=== PATIENT | male | born 1960 | race Caucasian/White ===

== ENCOUNTER 2024-11-09 10:48 | Outpatient (AMB) | payer MEDICARE, MEDICAID, SELFPAY ==
[2024-11-09 11:02] VITALS: BMI 33.5
--- NOTE | 2024-11-09 11:02 | A.SPINEOV_ITS ---
Vital Signs 11/09/24 11:02 Height 6 ft 4 in Weight 275 lb BMI 33.5 Intake Visit Reasons: LBP Intake Note: Mr. Nelson is here today c/o Low back pain that radiates to the knees. Manager Provider Relations Required: No Allergies No Known Allergies Allergy (Verified 11/09/24 11:03) Physical Exam Vital Signs: BMI result Body Mass Index 33.5 Assessment & Plan Assessment & Plan (1) Back pain: Code(s): M54.9 - Dorsalgia, unspecified Category: Medical Plan Dear Patricia, Thank you for referring Mr Nelson to our office today. He is a 64-year-old gentleman with a history of Marfan's disease, who presents for evaluation of chronic low back pain that has been going on for 20 years. 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 He has centralized lower lumbar pain which radiates upwards toward his upper lumbar spine. It is present all the time, even with sleeping, but particularly aggravated with standing and walking. Now he is unable to do even a short distance walk for maybe 20 30 ft before he feels like he has to sit down. There is a component of what he describes as aching in his legs but it is really not the symptom that brings him here today. The centralized back pain is the primary symptom. He has been through a host of conservative treatments through the years including physical therapy, lumbar facet blocks including recent radiofrequency ablations, epidural injections as well as a spinal cord stimulator. He had been on anti- inflammatories for years but apparently it was affecting his kidney so I had to stop. He is currently now taking Lyrica and Tylenol in addition to diclofenac cream. He comes in today with MRI showing multilevel degenerative disc disease and stenosis. PMH: History of Marfan's disorder, although he and his were able to give me some detail about his medical conditions related to that, it sounds like he has some kind of aortic root dilation and possibly a valve issue related to that. He is followed by a greens keeper in the [place] is where he lives, and apparently has another 1 in [place]. He has a history of coronary disease in his stent and that was many years ago and has been stable since that time in terms of his coronary disease. He had a pacemaker placed for sick sinus syndrome when he was living in [place]. History of hypertension. He had a diagnosis of valley fever a number of years ago. Although I am not completely familiar with this disorder, the describes something like a pulmonary fibrosis where the organism as walled off in his lungs and he can not have a recurrence of the disorder but it does affect his overall pulmonary function. He does not require inhalers or specific treatments for his lungs at this time but does get short of breath from time to time. He has had hip replacements, knee surgery. He has had cataract surgery done. Never had any major abdominal surgeries. Social hx: Quit smoking many years ago, does not drink use any recreational drugs Medications: Losartan, Tylenol, diclofenac cream, atenolol, baby aspirin, Crestor, vitamin D3, wegovy, allopurinol, amitriptyline Allergies: None Physical exam: Awake alert oriented no acute distress, he is 6 ft 4 in tall, has typical Marfan's features. Strength in the lower extremities is full, absent reflexes bilaterally at the patella and the Achilles. He has a wound from his spinal cord stimulator on his left lower lumbar area. Imaging review: Lumbar MRI done in the [place] is a demonstrates multilevel degenerative disc disease from L2-S1. I think it is the worse from L3-S1. He does have moderate to severe stenosis at L2-3, worsened according to the radiology report from previous imaging. Impression: 64-year-old gentleman with a history of Marfan's disease, presents with chronic low back pain for 20 years and multilevel degenerative disc disease that has failed to respond to multiple long-term interventions including physical therapy, medications, injections, radiofrequency ablations and a spinal cord stimulator. I am going to review his imaging with Dr. Hooper and see if he thinks he would be a good candidate for lumbar fusion surgery. He has multiple levels of disc degeneration that I think could be explaining his pain so I think he would ultimately end meeting 2 or 3 level fusion. We also have to consider that he has the stenosis at L2-3, but does not have significant lower extremity symptoms at this time, it is primarily centralized lower lumbar back pain. I explained all this to the patient and his and we reviewed the more typical procedures Dr. Hooper would do to fix this including the minimally invasive oblique lumbar interbody fusion. I will get a set of standing x-rays to better understand the bony anatomy. I will call the patient and his once I have a chance to review everything with Dr. Hooper. Thank you for allowing us to care for your patient. The total time spent with this visit with this patient was 45 minutes reviewing history, physical exam, lumbar imaging review, and implementation of treatment plan or further diagnostic testing Tommy Hooper MD,PhD [facility] Orders: Orders XR lumbar spine 4V min Today M54.9 - Dorsalgia, unspecified Coding Level of Care Code New Pt Level 4 (51115) Diagnoses Back pain M54.9
--- OUTSIDE RECORDS SUMMARY | 2024-11-09 12:01 | XMS_ITS | Clinical Summary ---
Author Organization [facility] Address [address] [place] [address] Care Team Providers Care Repeater Operator Name Role Phone Unavailable Primary Care Provider Unavailabl e Source Comments PLEASE NOTE, if this patient is a minor, it may be UNLAWFUL to discuss sensitive information that is contained in these records (such as FAMILY PLANNING, MENTAL HEALTH or SUBSTANCE ABUSE) with the minor patient's parent or other person without the patient's specific authorization.[facility] Medications No known medications Active Problems No known active problems Social History Tobacco Use Types Packs/Day Years Used Date Smoking Tobacco: Never Smokeless Tobacco: Never Tobacco Cessation:Counseling Given: Not Answered Social Connections Answer Date Recorded Connectedness 0 01/16/2024 Financial Resource Strain Answer Date R ecorded Financial Resource Strain 0 2023 Stress Answer Date Recorded Stress 0 01/16/2024 Physical Activity Answer Date Recorded Physical Activity 0 01/16/2024 Food Insecurity Answer Date Recorded Food 0 01/16/2024 Transportation Needs Answer Date Record ed Transportation 0 01/16/2024 Housing Stability Answer Date Recorded Housing 0 01/16/2024 Safety and Environment Answer Date Sawyer rded Safety 0 01/16/2024 Utilities Answer Date Recorded Utilities 0 01/16/2024 Employment Answer Date Recorded Stress 0 01/16/2024 Sex and Gender Information Value Date Recorded Sex Assigned at Not on file Legal Sex Male 11:18 AM PDT Gender Identity Not on file Sexual Orientation Not on file Last Filed Vital Signs Vital Sign Reading Time Taken Comments Blood Pressure 126/79 03/10/2024 1:36 PM EST Pulse 79 03/10/2024 1:36 PM EST Temperature - - Respiratory Rate - - Oxygen Saturation - - Inhaled Oxygen Concentration - - Weight - - Height - - Body Mass Index - - Plan of Treatment Health Maintenance Due Date Last Done Comments Anxiety Screening 1960 Diabetes Screening 1960 Hepatitis C Screening 1960 Lipid Screening 1960 HIV Screening 09/10/1974 Imm-DTaP/Tdap/Td (1 - Tdap) 09/10/1978 CT Colonography 09/10/2004 Colonoscopy 09/10/2004 Colorectal Cancer Screening 09/10/2004 FIT/gFOBT 09/10/2004 Fecal DNA 09/10/2004 Flexible Sigmoidoscopy 09/10/2004 Imm-Pneumococcal 50+ (1 of 1 - PCV) 09/10/2009 Imm-Zoster, Recombinant (1 of 2) 09/10/2009 Zez-[id number]-15 (1 - season) 2023 Alcohol and Drug Screen 03/18/2024 Depression Annual Screen 03/18/2024 Falls Prevention 09/10/2024 Imm-Influenza (#1) 2024 Hypertension Screening (#1) 03/10/2025 Tobacco Screening 03/10/2025 03/10/2024 [place] D[place]AF[place] NET DENTAL SAFETY [facility]
--- OUTSIDE RECORDS SUMMARY | 2024-11-09 12:01 | XMS_ITS | Clinical Summary ---
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 [employer] Name Role Phone Unavailable Primary Care Provider Unavailabl e Medications aspirin (ST MAY) 81 MG EC tablet Take 81 mg by mouth 1 (one) time Active atenolol (TENORMIN) 50 MG tablet Take 50 mg by mouth 1 (one) time each day 3 Active rosuvastatin (CRESTOR) 40 MG tablet Take 40 mg by mouth 1 (one) time each day 0 Active losartan (COZAAR) 100 MG tablet Take 100 mg by mouth 1 (one) time each day 3 Active sildenafil (VIAGRA) 50 MG tablet Take 50 mg by mouth if needed 4 Active pregabalin (LYRICA) 150 MG capsule Take 150 mg by mouth in the morning and 150 mg in the evening and 150 mg before bedtime. 2 Active amLODIPine (NORVASC) 10 MG tablet Take 10 mg by mouth 1 (one) time each day Active atorvastatin (LIPITOR) 40 MG tablet Take 40 mg by mouth 1 (one) time each day Active fluocinonide (LIDEX) 0.05 % ointment Apply topically 2 Active amitriptyline (ELAVIL) 25 MG tablet Take 75 mg by mouth 4 Active fexofenadine (JULIUS) 180 MG tablet Take 180 mg by mouth 1 (one) time each day 4 Active Active Problems Problem Noted Date Diagnosed Date Disorder of kidney 08/13/2023 Overview (2023): Last Assessment & Plan: Significant decline in kidney function from May 2023 to June 2023, confirmed on July 2023 labs as well. Reason for declining kidney function unknown. Patient has appointment long term care social worker September 10 Petechiae of skin 07/09/2023 Overview (2023): Last Assessment & Plan: Resolved with Julius, most likely due to seasonal allergies, use Julius as needed Pacemaker battery depletion 05/21/2023 Overview (2023): Last Assessment & Plan: Referral to local cardiology for pacemaker follow-up Chronic back pain 12/05/2022 Overview (2023): Last Assessment & Plan: On long-term Lyrica therapy, recent spinal cord stimulator-successful Referral to pain management for further follow-up Drug-induced erectile dysfunction 12/05/2022 Overview (2023): Last Assessment & Plan: Erectile dysfunction did not improve with correction of low blood pressure. Erectile dysfunction- Common issue with men, associated with aging Options for oral medications-Viagra, Levitra, Cialis All 3 have similar effectiveness, and similar side effects Most common side effects-vision changes, flushing. If you take nitroglycerin within 24 hours of Viagra, 48 hours of Levitra, or 3 days of Cialis, the combination of nitroglycerin and these medications can be fatal. If you develop an erection that lasts more than 3 hours, recommend ER evaluation immediately for rare condition called priapism Option-low cost sildenafil through [facility], adjust dose from 20 mg at a time to 60 mg at a time. Patient understands risk versus benefits, begin trial of prescription Viagra Encounter for immunization 12/05/2022 Overview (2023): Last Assessment & Plan: Highly recommend-get the updated COVID vaccine, (either Pfizer - Comrinaty or Moderna - SpikeVax) recommended for everyone over six-months old, it's more effective against the variants that are increasingly causing disease and [place]. People recently infected with COVID can receive the updated vaccine as soon as they have recovered, to reduce the risk of reinfection. [id number] available your doctors office Recently, patients have had greater success obtaining the updated November 2022 COVID vaccine through larger chain pharmacies, rather than smaller local pharmacies Alternative-for patients who are uninsured, or whose insurance does not cover the cost of vaccinations [address], [address], [place] [address] We are currently offering COVID-19 vaccinations to eligible persons 6 months and older. We offer Pfizer and Moderna at every COVID-19 vaccination clinic. Vaccine Clinics are held as follows: 6 months - 5 years of age: Mondays BY APPOINTMENT ONLY from 9am - 2:30pm 5+ years: Wednesdays BY APPOINTMENT ONLY from 1:30pm - 3:30pm To schedule an appointment for a vaccine call [phone]. Recommend seasonal influenza vaccine every fall, as soon as possible. Available at your doctor's office, in pharmacies, and at the [facility] Recommend - shingles vaccine, Shingrix - extremely effective at preventing the painful rash called shingles. Series of 2 shots given 2-6 months apart, available in many pharmacies. Available in our office for patients with private insurance (not Medicare or Medicaid - better option = pharmacy) Our records indicate you previously received Zostavax in 2015, it is recommended for patients who have received Zostavax, get the 2 dose series of Shingrix. Shingrix = very effective at preventing shingles, Zostavax was not. RSV vaccine- is approved by the FDA as safe and effective for adults over age 60, and is available in pharmacies, however Not yet recommended by the CDC, I will recommend the RSV vaccine for you if and when the CDC recommends you receive it. Hyperuricemia 12/05/2022 Overview (2023): Last Assessment & Plan: Await lab test results Aortic root dilatation 07/30/2022 Drug coated stent in anterio r descending branch of left coronary artery 07/30/2022 Hyperlipidemia 01/07/2020 Overview (2023): Last Assessment & Plan: Treated with Crestor, await follow-up labs. Marfan syndrome 01/07/2020 Overview (2023): Last Assessment & Plan: History of Marfan's, at increased risk for rupture of aortic aneurysms Get old records,-previous imaging of aorta, previous echocardiogram Patient quit smoking 1985 Blood pressure currently low Recommend-stop alcohol due to adverse effects on blood vessels Sick sinus syndrome 06/19/2019 Coronary arteriosclerosis 06/18/2019 Dehydration 06/18/2019 Dyspnea 06/18/2019 Essential hypertension 06/18/2019 Overview (2023): Last Assessment & Plan: Blood pressure benign, good control, continue treatment same Second degree atrioventricular block 06/18/2019 Immunizations Immunization Administration Dates Next Due DTaP 12/09/2008 Influenza (IM) Preservative Free 01/10/2022 Influenza, Injectable, Quadrivalent, Preservativ e Free 05/21/2023,03/09/2019 Moderna Sars-cov-2 Vaccination 01/10/2022 Zoster 09/23/2014 Family History Medical History Relation Comments FH: Blood disorder Father Marfan syndrome Mother Relation Status Comments Father Mother Social History Tobacco Use Types Packs/Day Years Used Date Smoking Tobacco: Former Cigarettes Smokeless Tobacco: Never Alcohol Use Standard Drinks/Week Comments Yes 0 (1 standard drink = 0.6 oz pur e alcohol) Sex and Gender Information Value Date Recorded Sex Assigned at Not on file Legal Sex Male 9:06 AM MDT Gender Identity Not on file Sexual Orientation Not on file Last Filed Vital Signs Vital Sign Reading Time Taken Comments Blood Pressure 124/65 2023 4:22 PM EDT Pulse 65 2023 4:22 PM EDT Temperature - - Respiratory Rate - - Oxygen Saturation - - Inhaled Oxygen Concentration - - Weight 132 kg (291 lb) 2023 4:22 PM EDT Height 193 cm (6' 4 ) 2023 4:22 PM EDT Body Mass Index 35.42 2023 4:22 PM EDT Plan of Treatment Health Maintenance Due Date Last Done Comments Pneumococcal PPSV23/PCV13 65 + Years / High and Highest Risk (1 of 5 - PCV) 09/10/1978 COVID-19 Vaccine (2 - season) 2023 Influenza Vaccine (#1) 2024 , 01/10/2022, 03/09/2019
--- OUTSIDE RECORDS SUMMARY | 2024-11-09 12:01 | XMS_ITS | Clinical Summary ---
Author Organization [facility] Address [address] [place] [address] Phone Care Team Providers Care Custom Harvester Name Role Phone Zehra Onofre MD Primary Care Provider [phone] Allergies No known active allergies Medications atenolol (TENORMIN) 50 mg tablet daily. Active diclofenac sodium (VOLTAREN) 1 % Gel 4 (four) times a day. PRN 2 Active fluocinonide 0.05 % ointment Apply topically 2 (two) times a day. PRN 2 Active losartan (COZAAR) 100 MG tablet Take 100 mg by mouth daily. Active pregabalin (LYRICA) 150 MG capsule Take 150 mg by mouth every 3 (three) days. 2 Active rosuvastatin (CRESTOR) 40 MG tablet Take by mouth daily. Active aspirin 81 MG EC tablet daily. Active CHOLECALCIFEROL , VITAMIN D3, ORAL Take 1,000 Units by mouth daily. Active amitriptyline (ELAVIL) 25 MG tablet Take 25 mg by mouth nightly at bedtime. Active Active Problems Problem Noted Date Diagnosed Date Nonrheumatic aortic valve insufficiency 02/28/20 24 Coronary artery disease invo lving [place] coronary artery of [place] heart without angina pectoris 02/28/2024 Hyperlipidemia 02/28/2024 Second degree AV block 02/28/2024 Pacemaker 02/28/2024 Venous insufficiency 02/28/2024 Aortic root dilatation 07/30/2022 Marfan syndrome 07/30/2022 Presence of drug coated stent in LAD coronary ar mathew 07/30/2022 Primary hypertension 07/30/2022 Social History Tobacco Use Types Packs/Day Years Used Date Smoking Tobacco: Former Cigarettes 1 5 0 03/18/1981 - 03/18/1986 Smokeless Tobacco: Never Tobacco Cessation:Counseling Given: Not Answered Alcohol Use Standard Drinks/Week Comments Yes 1 (1 standard drink = 0.6 oz pur e alcohol) Education Answer Date Recorded Are you interested in more education? Not on jessica e 07/14/2022 Are you concerned about learning? Not on file 07/14/2022 No 07/14/2022 No 07/14/2022 Digital Access Answer Date Recorded No 08/11/2022 No 08/11/2022 Reliable internet access at home? Not on file 08/11/2022 Device with a working camera? Not on file Sex and Gender Information Value Date Recorded Sex Assigned at Male 03/28/2023 8:12 AM EST Legal Sex Male 5:46 PM EST Gender Identity Male 03/28/2023 8:12 AM EST Sexual Orientation Straight 03/28/2023 8: 12 AM EST Last Filed Vital Signs Vital Sign Reading Time Taken Comments Blood Pressure 127/75 03/02/2024 4:31 PM EST Pulse 58 03/02/2024 4:31 PM EST Temperature 36.7 C (98 F) 03/27/2022 12:57 PM EST Respiratory Rate 16 07/30/2022 12:36 PM EDT Oxygen Saturation 95% 03/27/2022 1:09 PM EST Inhaled Oxygen Concentration 4% 03/27/2022 1 0:45 AM EST Weight 127.9 kg (282 lb) 03/02/2024 4:31 PM EST Height 193 cm (6' 4 ) 03/02/2024 2:59 PM EST Body Mass Index 34.33 03/02/2024 2:59 PM EST Plan of Treatment Upcoming Encounters Date Type Department Care Team (Late st Contact Info) Description 03/02/2024 Procedure Pass [facility] [address] [place] [address] 08/23/2025 2:30 PM EDT Appointment [facility] [address] [place] [address] Noé Armas MD, MSc [address] [facility] [place] [address] [email or web address] 08/23/2025 3:30 PM EDT Office Visit [facility] Cardiovascular Medicine [address], [address] [place] [address] Kelly Mack, CHIEF I DISPATCHER [address] [place] [address] [email or web address] Health Maintenance Due Date Last Done Comments Adult Td,Tdap Booster 1959 DEPRESSION SCREENING 1971 HEPATITIS C SCREENING 09/10/1977 HIV ONE-TIME SCREENING (18-6 5 YEARS) 09/10/1977 COLOGUARD 09/10/2004 COLONOSCOPY 09/10/2004 COLORECTAL CANCER SCREENING 09/10/2004 FIT TEST 09/10/2004 FOBT 09/10/2004 SIGMOIDOSCOPY 09/10/2004 VIRTUAL COLONOSCOPY 09/10/2004 PNEUMOCOCCAL VACCINES (50+ y ears) (1 of 1 - PCV) 09/10/2009 ZOSTER VACCINES (1 of 2) 09/10/2009 CREATININE LEVEL 09/07/2021 09/07/2020 POTASSIUM LEVEL 09/07/2021 09/07/2020 SCREENING FOR DIABETES 09/08/2023 09/07/2020 COVID-19 VACCINE ( - 2023-2 5 season) 2023 BLOOD PRESSURE 08/31/2024 03/02/2024 ABDOMINAL AORTIC ANEURYSM (A AA) SCREENING 09/10/2024 09/07/2020 RSV VACCINE (1 - 1-dose 75+ series) 09/10/2034 SMOKING STATUS SCREENING (On ce After 26 Yrs) Completed 03/02/2024 HEPATITIS A VACCINES Aged Out No long er eligible based on patient's age to complete this topic HIB VACCINES Aged Out No longer eligi ble based on patient's age to complete this topic MENINGOCOCCAL VACCINES (ACWY) Aged Out No longer eligible based on patient's age to complete this topic MENINGOCOCCAL VACCINES (B) Aged Out N o longer eligible based on patient's age to complete this topic Medical Devices Implanted Type Area Behavioral Health Assistant Device Identifier Shelf Expiration Date Model / Serial / Lot Right Thr Iol Lens Intraocular Ct Rafaela 602 21.0d - [id number] Implanted:Qty: 1 on 03/27/2022 by Corky Jim MD at [facility] [place] Right: Eye [employer] 12/15/2024 CT RAFAELA 602 21.0D / [id number] / Insurance MEDICARE PART A & B [facility]IC[facility] PART [facility] & [facility] B [facility] MEDIC[facility] A & [facility] B [facility] MEDICARE PART A & B [facility] Care Teams Custom Harvester Relationship Specialty Start Date End Date Zehra Onofre MD [address] [place] [id number] PCP - General 03/05/24 Additional Source Comments The information contained in this document represents components of the legal health record. It is not the complete legal health record.[facility]
--- OUTSIDE RECORDS SUMMARY | 2024-11-09 12:02 | XMS_ITS ---
Author Name [facility] Organization Unknown Results Test Name/Text Value Interpretation Date Range Source Flag M-protein Isotype MS, Random, U Negative Normal 4 - [facility] Creat Ur-mCnc 51.0 mg/dL Normal 4 16 - 326 [facility] Albumin Ur Elph-mCnc 4.0 mg/dL Normal 02 4 [facility] Prot Pattern Ur Elph-Imp SEE COMMENTS Normal 4 [facility] M-protein Isotype, MS, Random,U SEE COMMENTS Normal 4 [facility] Prot Ur-mCnc 4.0 mg/dL Normal 4 [facility] Prot/Creat Ur 0.08 mg/mg Normal 4 - 0.18 [facility] Creat Ur-mCnc 48.35 mg/dL Normal 4 - [facility] Prot Ur-mCnc < 6 Normal 4 0 - 10 [facility] Prot/Creat Ur-Rto Normal 4 [facility] Creat Ur-mCnc 48.35 mg/dL Normal 4 - [facility] Microalbumin/Creat Ur 8.9 ug/mg CREAT Normal 4 - 30 [facility] Microalbumin Ur-mCnc 4.3 mg/L Normal 02 4 - 20 [facility] B burgdor C6 Ab Ser Ql Negative Normal 4 - [facility] Proteinase3 IgG Ser Ql IA Negative Normal 4 - [facility] Myeloperoxidase Ab Ser Ql IA Negative Normal 4 - [facility] dsDNA Ab Ser Ql Negative Normal 4 - [facility] dsDNA Ab Ser-aCnc 18.0 IU/mL Normal 4 [facility] Hu Ab Ser Ql Negative Normal 4 - [facility] YEISON Ser-aCnc 20.0 AU/mL Normal 4 [facility] BM IgG Ser-aCnc <0.2 Normal 4 - [facility] C3 SerPl-mCnc 172.0 mg/dL Above high normal 4 79 - 152 [facility] C4 SerPl-mCnc 43.0 mg/dL Normal 4 21 - 50 [facility] CO2 SerPl-sCnc 27.8 mmol/L Normal 4 23 - 34 [facility] Phosphate SerPl-mCnc 3.4 mg/dL Normal 02 4 2.6 - 4.7 [facility] Calcium SerPl-mCnc 9.3 mg/dL Normal 4 8.6 - 10.5 [facility] eGFRcr SerPlBld CKD-EPI 2020 56.0 mL/min/1.73 m2 Below low normal 4 - [facility] Calcium Album cor SerPl-mCnc 9.8 mg/dL Normal 4 8.6 - 10.5 [facility] BUN SerPl-mCnc 19.0 mg/dl Normal 4 7 - 22 [facility] Albumin SerPl BCP-mCnc 3.4 g/dL Normal 4 3.4 - 5 [facility] Potassium SerPl-sCnc 4.9 mmol/L Normal 02 4 3.5 - 5.3 [facility] Anion Gap SerPl-sCnc 7.0 mmol/L Normal 02 4 3 - 13 [facility] Chloride SerPl-sCnc 103.0 mmol/L Normal 09/12/19 2 4 98 - 107 [facility] Creat SerPl-mCnc 1.41 mg/dL Above high normal 4 0.8 - 1.3 [facility] Glucose SerPl-mCnc 102.0 mg/dL Normal 4 70 - 140 [facility] Sodium SerPl-sCnc 138.0 mmol/L Normal 4 134 - 148 [facility] Neutrophils/leuk NFr Bld Auto 58.9 % Normal 4 41 - 75 [facility] Neutrophils # Bld Auto 4.26 x10E3/uL Normal 4 1.4 - 6.5 [facility] Lymphocytes/leuk NFr Bld Auto 25.6 % Normal 4 15 - 43 [facility] Monocytes # Bld Auto 0.68 x10E3/uL Normal 4 - [facility] Hct VFr Bld Auto 42.8 % Normal 4 39 - 49.2 [facility] PMV Bld Auto 8.7 fL Normal 4 5 - 15 [facility] Basophils # Bld Auto 0.01 x10E3/uL Normal 4 - [facility] Monocytes/leuk NFr Bld Auto 9.4 % Normal 4 4.5 - 12 [facility] MCHC RBC Auto-mCnc 33.6 g/dL Normal 4 32 - 39.2 [facility] MCV RBC Auto 84.1 fL Normal 4 82 - 101 [facility] Platelet # Bld Auto 225.0 x10E3/uL Normal 4 135 - 349 [facility] RBC # Bld Auto 5.09 x10E6/uL Normal 4 4.01 - 5.63 [facility] Eosinophil/leuk NFr Bld Auto 5.4 % Normal 4 0 - 6.5 [facility] WBC # Bld Auto 7.23 x10E3/uL Normal 4 3.7 - 10 [facility] Basophils/leuk NFr Bld Auto 0.1 % Normal 4 0 - 2.2 [facility] RDW RBC Auto-Rto 13.4 % Normal 4 10.9 - 14.9 [facility] Lymphocytes # Bld Auto 1.85 x10E3/uL Normal 4 0.6 - 3.4 [facility] MCH RBC Qn Auto 28.3 pg Below low normal 09/12/19 2 4 28.5 - 36.9 [facility] Eosinophil # Bld Auto 0.39 x10E3/uL Normal 09/11 4 - [facility] Hgb Bld-mCnc 14.4 g/dL Normal 4 13.4 - 18 [facility] Urate SerPl-mCnc 8.6 mg/dL Normal 4 4.8 - 8.7 [facility] Calcium SerPl-mCnc 8.7 mg/dL Normal 4 8.6 - 10.5 [facility] BUN SerPl-mCnc 27.0 mg/dl Above high normal 08/07/19 2 4 7 - 22 [facility] ALP SerPl-cCnc 97.0 U/L Normal 4 46 - 116 [facility] eGFRcr SerPlBld CKD-EPI 2020 54.0 mL/min/1.73 m2 Below low normal 4 - [facility] AST SerPl w P-5'-P-cCnc 20.0 U/L Normal 4 15 - 37 [facility] Bilirub SerPl-mCnc 0.51 mg/dL Normal 4 0.2 - 1 [facility] ALT SerPl w P-5'-P-cCnc 34.0 U/L Normal 4 12 - 78 [facility] Prot SerPl-mCnc 7.6 g/dL Normal 4 6.4 - 8.2 [facility] Potassium SerPl-sCnc 4.9 mmol/L Normal 02 4 3.5 - 5.3 [facility] Chloride SerPl-sCnc 104.0 mmol/L Normal 08/07/19 2 4 98 - 107 [facility] CO2 SerPl-sCnc 29.6 mmol/L Normal 4 23 - 34 [facility] Glucose SerPl-mCnc 122.0 mg/dL Normal 4 70 - 140 [facility] Sodium SerPl-sCnc 141.0 mmol/L Normal 4 134 - 148 [facility] Anion Gap SerPl-sCnc 7.0 mmol/L Normal 02 4 3 - 13 [facility] Globulin Ser Calc-mCnc 4.1 g/dL Normal 4 2.4 - 4.3 [facility] Creat SerPl-mCnc 1.46 mg/dL Above high normal 4 0.8 - 1.3 [facility] Albumin SerPl BCP-mCnc 3.5 g/dL Normal 4 3.4 - 5 [facility] Cryocrit Ser Spun Westergren 0.0 % Normal 4 [facility] Cryoglob Ser Ql 1W Cold Inc Negative Normal 4 - [facility] Proteinase3 IgG Ser Ql IA Negative Normal 4 - [facility] Myeloperoxidase Ab Ser Ql IA Negative Normal 4 - [facility] HCV RNA SerPl AMBER+probe-aCnc Undetected Normal 4 - [facility] CH50 SerPl-aCnc 57.0 U/mL Normal 4 30 - 75 [facility] HBV core Ab SerPl Ql IA Non-reactive Normal 4 - [facility] YEISON Ser-aCnc 32.0 AU/mL Normal 4 [facility] Hu Ab Ser Ql Negative Normal 4 - [facility] HBV surface Ab Ser Ql IA Non-reactive Normal 4 - [facility] HIV 1+2 Ab+HIV1 p24 Ag SerPl Ql IA Non-Reactive Normal 4 - [facility] C4 SerPl-mCnc 39.0 mg/dL Normal 4 21 - 50 [facility] C3 SerPl-mCnc 163.0 mg/dL Above high normal 4 79 - 152 [facility] Rheumatoid fact Ser Ql LA Negative Normal 4 - [facility] ESR Bld Qn Westrgrn 6.0 mm/HR Normal 07/09/19 2 4 - 20 [facility] Albumin SerPl BCP-mCnc 3.5 g/dL Normal 4 3.4 - 5 [facility] ALP SerPl-cCnc 98.0 U/L Normal 4 46 - 116 [facility] BUN SerPl-mCnc 26.0 mg/dl Above high normal 07/09/19 2 4 7 - 22 [facility] Globulin Ser Calc-mCnc 4.2 g/dL Normal 4 2.4 - 4.3 [facility] CO2 SerPl-sCnc 26.4 mmol/L Normal 4 23 - 34 [facility] Bilirub SerPl-mCnc 0.44 mg/dL Normal 4 0.2 - 1 [facility] AST SerPl w P-5'-P-cCnc 21.0 U/L Normal 4 15 - 37 [facility] Creat SerPl-mCnc 1.45 mg/dL Above high normal 4 0.8 - 1.3 [facility] Anion Gap SerPl-sCnc 9.0 mmol/L Normal 02 4 3 - 13 [facility] Glucose SerPl-mCnc 108.0 mg/dL Normal 4 70 - 140 [facility] ALT SerPl w P-5'-P-cCnc 36.0 U/L Normal 4 12 - 78 [facility] Sodium SerPl-sCnc 139.0 mmol/L Normal 4 134 - 148 [facility] eGFRcr SerPlBld CKD-EPI 2020 54.0 mL/min/1.73 m2 Below low normal 4 - [facility] Prot SerPl-mCnc 7.7 g/dL Normal 4 6.4 - 8.2 [facility] Potassium SerPl-sCnc 4.5 mmol/L Normal 02 4 3.5 - 5.3 [facility] Calcium SerPl-mCnc 9.0 mg/dL Normal 4 8.6 - 10.5 [facility] Chloride SerPl-sCnc 104.0 mmol/L Normal 07/09/19 2 4 98 - 107 [facility] Hgb Bld-mCnc 14.6 g/dL Normal 4 13.4 - 18 [facility] Platelet # Bld Auto 250.0 x10E3/uL Normal 4 135 - 349 [facility] WBC # Bld Auto 8.3 x10E3/uL Normal 4 3.7 - 10 [facility] MCHC RBC Auto-mCnc 33.4 g/dL Normal 4 32 - 39.2 [facility] RDW RBC Auto-Rto 13.8 % Normal 4 10.9 - 14.9 [facility] Lymphocytes/leuk NFr Bld Auto 30.5 % Normal 4 15 - 43 [facility] Hct VFr Bld Auto 43.7 % Normal 4 39 - 49.2 [facility] Basophils/leuk NFr Bld Auto 0.1 % Normal 4 0 - 2.2 [facility] Eosinophil/leuk NFr Bld Auto 4.6 % Normal 4 0 - 6.5 [facility] MCH RBC Qn Auto 28.5 pg Normal 4 28.5 - 36.9 [facility] Basophils # Bld Auto 0.01 x10E3/uL Normal 4 - [facility] Eosinophil # Bld Auto 0.38 x10E3/uL Normal 07/08 4 - [facility] RBC # Bld Auto 5.12 x10E6/uL Normal 4 4.01 - 5.63 [facility] Monocytes # Bld Auto 0.92 x10E3/uL Above high normal 0 4 - [facility] Neutrophils/leuk NFr Bld Auto 53.1 % Normal 4 41 - 75 [facility] MCV RBC Auto 85.4 fL Normal 4 82 - 101 [facility] Monocytes/leuk NFr Bld Auto 11.1 % Normal 4 4.5 - 12 [facility] PMV Bld Auto 8.9 fL Normal 4 5 - 15 [facility] Neutrophils # Bld Auto 4.41 x10E3/uL Normal 4 1.4 - 6.5 [facility] Lymphocytes # Bld Auto 2.53 x10E3/uL Normal 4 0.6 - 3.4 [facility] HCV Ab s/co SerPl IA Non-reactive Normal 02 4 - [facility] PSA SerPl-mCnc 2.29 ng/mL Normal 4 - [facility] Cholest SerPl-mCnc 144.0 mg/dL Normal 4 - 200 [facility] Fasting status Patient Ql Reported No Normal 4 [facility] NonHDLc SerPl-mCnc 109.0 mg/dL Normal 4 - 190 [facility] LDLc SerPl Direct Assay-mCnc 53.0 mg/dL Normal 4 - [facility] Trigl SerPl-mCnc 279.0 mg/dL Above high normal 4 - 150 [facility] HDLc SerPl-mCnc 35.0 mg/dL Below low normal 05/22/19 2 4 39 - [facility] Urate SerPl-mCnc 7.3 mg/dL Normal 4 4.8 - 8.7 [facility] eGFRcr SerPlBld CKD-EPI 2020 72.0 mL/min/1.73 m2 Normal 4 - [facility] Glucose SerPl-mCnc 91.0 mg/dL Normal 4 70 - 140 [facility] Chloride SerPl-sCnc 105.0 mmol/L Normal 05/21/19 2 4 98 - 107 [facility] Creat SerPl-mCnc 1.15 mg/dL Normal 4 0.8 - 1.3 [facility] Albumin SerPl BCP-mCnc 3.4 g/dL Normal 4 3.4 - 5 [facility] Prot SerPl-mCnc 7.8 g/dL Normal 4 6.4 - 8.2 [facility] Potassium SerPl-sCnc 4.5 mmol/L Normal 02 4 3.5 - 5.3 [facility] BUN SerPl-mCnc 15.0 mg/dl Normal 4 7 - 22 [facility] ALP SerPl-cCnc 92.0 U/L Normal 4 46 - 116 [facility] CO2 SerPl-sCnc 27.5 mmol/L Normal 4 23 - 34 [facility] ALT SerPl w P-5'-P-cCnc 27.0 U/L Normal 4 12 - 78 [facility] Sodium SerPl-sCnc 141.0 mmol/L Normal 4 134 - 148 [facility] Anion Gap SerPl-sCnc 9.0 mmol/L Normal 02 4 3 - 13 [facility] AST SerPl w P-5'-P-cCnc 21.0 U/L Normal 4 15 - 37 [facility] Calcium SerPl-mCnc 9.2 mg/dL Normal 4 8.6 - 10.5 [facility] Globulin Ser Calc-mCnc 4.4 g/dL Above high normal 4 2.4 - 4.3 [facility] Bilirub SerPl-mCnc 0.34 mg/dL Normal 4 0.2 - 1 [facility] Encounters Encounter Type Encounter Reason Primary Diagnosis Location Date Ambulatory Chronic kidney disea se, stage 2 (mild) Chronic kidney disease, stage 2 (mild) [facility] 09/12/2023 Ambulatory [facility] 08/28/2023 Ambulatory Essential (primary) hypertension Essential (primary) hypertension [facility] 08/21/2023 Ambulatory [facility] 08/08/2023 Ambulatory Spontaneous ecchymoses Spontaneous ecchymoses [facility] 08/07/2023 Ambulatory Spontaneous ecchymoses Spontaneous ecchymoses [facility] 08/07/2023 Ambulatory Spondylosis without myelopathy or radiculopathy, lumbosacral region Spondylosis without myelopathy or radiculopathy, lumbosacral region [facility] 08/05/2023 Ambulatory Thoracic aortic ectasia Thoracic aortic ectasia [facility] 07/29/2023 Ambulatory Marfan syndrome, unspecified Marfan syndrome, unspecified [facility] 07/22/2023 Ambulatory Spontaneous ecchymoses [facility]ontaneous ecchymoses [facility] 07[facility]09/[facility]23 Ambulatory Spontaneous ecchymoses Spontaneous ecchymoses [facility] 07/09/2023 Ambulatory Encounter for checki ng and testing of cardiac pacemaker pulse generator (battery) Encounter for checking and testing of cardiac pacemaker pulse [facility] Ambulatory Essential (primary) hypertension Essential (primary) hypertension [facility] 05/21/2023 Ambulatory Essential (primary) hypertension Essential (primary) [facility] 05[facility]21[facility]2023 Ambulatory Spondylosis without myelopathy or radiculopathy, lumbosacral region Spondylosis without myelopathy or radiculopathy, lumbosacral region [facility] 05/07/2023 Ambulatory [facility] 03/23/2023 Ambulatory Spondylosis without myelopathy or radiculopathy, thoracolumbar region Spondylosis without myelopathy or radiculopathy, thoracolumbar region [facility] 02/25/2023 Ambulatory Spondylosis without myelopathy or radiculopathy, lumbosacral region Spondylosis without myelopathy or radiculopathy, lumbosacral region [facility] 01/11/2023 Ambulatory Essential (primary) hypertension Essential (primary[facility] hypertension [facility]/2022 Care Team Organization Name Specialty Phone Email Start Date End Da te [facility] Ambulatory JOYCE GARCIA [facility] [email or web address] 04/07/2023 [facility] Ambulatory 03/23/2023 [facility] JOYCE GARCIA Primary Care [email or web address] 01/11/2023 [facility] JOYCE GARCIA Primary Care [email or web address] 12/19/2022 [facility] 12/05/2022
== END 2024-11-09 11:56 | disposition home or self-care (01) ==
LOC: HO.HNS 10:48
PROVIDERS: Visit Provider Physician Assistant
DX: M54.9 Dorsalgia, unspecified (principal)
CPT/HCPCS: 99204

== ENCOUNTER 2024-11-09 10:48 | Outpatient (REF) | payer MEDICARE, MEDICAID, SELFPAY ==
--- NOTE | ~2024-11-09 | XR_ITS ---
EXAMINATION: XR LUMBOSACRAL SPINE CLINICAL INFORMATION: M54.9 - Dorsalgia, unspecified COMPARISON: None available. TECHNIQUE: Lateral views in neutral, flexion and extension position. AP view. FINDINGS: Multilevel endplate sclerosis marginal osteophyte formation and decreased intervertebral disc height throughout the included axial skeleton. There is a grade 1 anterolisthesis at L2-3 in neutral position which persists during flexion and extension position. No acute cortical disruption. Levoconvex rotoscoliosis apex at L3. There is an intraspinal canal stimulator device with a reservoir overlapping the left iliac crest and and draining from the left posterior aspect of the lower back perhaps T11 level and T8 and T9 at the superior endplate of T9. Facet joint hypertrophy at L4-5 and L5-S1. No lytic or blastic lesions. XR/XR lumbar spine 4V min IMPRESSION: Multilevel thoracolumbar spondylosis and levoconvex rotoscoliosis apex at L3 with a grade 1 anterolisthesis L2-3 and no instability. Electronically signed by: Jorge L Lombardo MD 11/09/2024 12:05 PM EDT
== END 2024-11-09 10:49 | disposition home or self-care (01) ==
LOC: HO.HOSX 10:48
PROVIDERS: Visit Provider Physician Assistant
DX: M54.50 Low back pain, unspecified (principal)
CPT/HCPCS: 72110; 99202

== ENCOUNTER → 2024-11-09 11:49 | Outpatient (BNV) | payer MEDICARE, MEDICAID, SELFPAY | PROVIDERS: Visit Provider Radiology Diagnostic Radiology | DX: M47.815 Spondylosis without myelopathy or radiculopathy, thoracolumbar region (principal) | CPT/HCPCS: 72110 ==

== ENCOUNTER 2024-11-27 08:44 | Outpatient (AMB) | payer MEDICARE, MEDICAID, SELFPAY ==
--- NOTE | 2024-11-27 08:54 | A.SPINEOV_ITS ---
Intake Visit Reasons: surgical discussion Intake Note: Mr. Nelson is here today to discus surgery. 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 His MRI is done at the [facility] in his x- rays were done here at [place]. He came back to discuss possible surgical intervention for severe lumbar degenerative disc disease. Please refer to my last note for the specifics of his problem. Dr. Hooper and I sat down with him to discuss lumbar fusion surgery, specifically L2-S1 oblique lumbar interbody fusion (possible trans Kambin L2-3). We quoted success rate as 60- 70%. We will need assistance from Dr. Arreola on the approach so we will coordinate a preoperative visit with him. The patient will need cardiac clearance as well given his remote history of CAD and history of sick sinus syndrome with pacemaker. He also has some kind of issue with his valve but he tells me he is stable. 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 He will stop his Wegovy and his aspirin 1 week prior to surgery. The patient was given risk and benefits of lumbar fusion surgery including but not limited to infection, hematoma, nerve injury, durotomy, weakness, bowel/bladder injury, persistent pain, and pseudoarthosis or instrumentation failure. We also discussed the option to continue with conservative treatment and patient wishes to proceed with surgery. They are aware they should stop NSAIDs 7 days prior to surgery. All questions were answered to the best of our ability. If there is anything about this patients medical history that we have overlooked or concerns you have about us proceeding with surgery we would appreciate any input you can offer. Total amount of time spent in this visit was 20 minutes in discussion of symptoms, lumbar MRI imaging results and subsequent plan of care Tommy Hooper MD,PhD [facility] Coding Level of Care Code Est Pt Level 3 (25150) Diagnoses Back pain M54.9
--- OUTSIDE RECORDS SUMMARY | 2024-11-27 09:24 | XMS_ITS | Clinical Summary ---
Author Organization [facility] Address [address] [place] [address] Care Team Providers Care Lamp Decorator Name Role Phone Unavailable Primary Care Provider [...] 09/10/2009 Imm-Zoster, Recombinant (1 of 2) 09/10/2009 [id number] (1 - season) 2023 Alcohol and Drug Screen 03/18/2024 Depression Annual Screen 03/18/2024 Falls Prevention 09/10/2024 Imm-Influenza (#1) 2024 Hypertension Screening (#1) 03/10/2025 Tobacco Screening 03/10/2025 03/10/2024 Insurance [place] D[place]AF[place] NET DENTAL SAFETY FORMERLY [facility] DENTAL
--- OUTSIDE RECORDS SUMMARY | 2024-11-27 09:24 | XMS_ITS | Encounter Summary ---
Author Organization [facility] Address [address] [place] [address] Phone Care Team Providers Care Molder Foam Rubber Name Role Phone Dunia Hansen MD Primary Care Provider [phone] Zehra Onofre MD Primary Care Provider [phone] Encounter Details Date Type Department Care Team (Late st Contact Info) Description 03/27/2022 Procedure Pass [facility] DEPT [address] [place] [address] Social History Tobacco Use Types Packs/Day Years Used Date Smoking Tobacco: Former Cigarettes 1 5 0 03/18/1981 - 03/18/1986 Smokeless Tobacco: Never Alcohol Use Standard Drinks/Week Comments Yes 1 (1 standard drink = 0.6 oz pur e alcohol) Sex and Gender Information Value Date Recorded Sex Assigned at Male 03/28/2023 8:12 AM EST Legal Sex Male 5:46 PM EST Gender Identity Male 03/28/2023 8:12 AM EST Sexual Orientation Straight 03/28/2023 8: 12 AM EST documented as of this encounter Plan of Treatment Upcoming Encounters Date Type Department Care Team (Late st Contact Info) Description 03/02/[address] [facility] Cardiac [address] [place] [address] 08/23/2025 2:[address] [facility] Cardiac [address] [place] [address] Noé Armas MD, MSc [address] [place], [place] [id number] [place] [id number] [email or web address] 08/23/2025 3:30 PM EDT Office Visit [facility] Cardiovascular Medicine [address] [facility], [address] [place] [address] Kelly Mack CNP [address] [facility] [address] [place] [address] [email or web address] documented as of this encounter Visit Diagnoses Not on filedocumented in this encounter Care Teams Molder Foam Rubber Relationship Specialty Start Date End Date Dunia Hansen MD [address] [place] [address] PCP - General 02/21/22 03/04/24 Zehra Onofre MD [address] [address] PCP - General 03/05/24 Dr. Charles Ramsey [facility] [employer] 03/15/22 03/04/24 documented as of this encounter Additional Source Comments The information contained in this document represents components of the legal health record. It is not the complete legal health record.[facility]
--- OUTSIDE RECORDS SUMMARY | 2024-11-27 09:24 | XMS_ITS | Clinical Summary ---
Author Organization [facility] Address [address] [place] [address] Phone Care Team Providers Care Division Head Name Role Phone Unavailable Primary Care Provider [...] declining kidney function unknown. Patient has appointment manager brand September 10 Petechiae of skin 07/09/2023 Overview [...] condition called priapism Option-low cost sildenafil through [facility], adjust dose from 20 mg at [...] recovered, to reduce the risk of reinfection. [id number] available your doctors office Recently, patients have had greater success obtaining the updated November 2022 COVID vaccine through larger chain pharmacies, rather than smaller local pharmacies Alternative-for patients who are uninsured, or whose insurance does not cover the cost of vaccinations [address], [address], [place] [address] We are currently offering COVID-19 vaccinations to eligible persons 6 months and older. We offer Pfizer and Moderna at every COVID-19 vaccination clinic. Vaccine Clinics are held as follows: 6 months - 5 years of age: Mondays BY APPOINTMENT ONLY from 9am - 2:30pm 5+ years: Wednesdays BY APPOINTMENT ONLY from 1:30pm - 3:30pm To schedule an appointment for a vaccine call [phone]. Recommend seasonal influenza vaccine every fall, as soon as possible. Available at your doctor's office, in pharmacies, and at the [facility] Recommend - shingles vaccine, Shingrix - extremely [...] PCV) 09/10/1978 COVID-19 Vaccine (2 - season) 2024 Influenza Vaccine (#1) 2024 , 01/10/2022, 03/09/2019
--- OUTSIDE RECORDS SUMMARY | 2024-11-27 09:24 | XMS_ITS | Clinical Summary ---
Author Organization [facility] Address [address] [place] [address] Phone Care Team Providers Care Joiners Supervisor Name Role Phone Zehra Onofre MD Primary Care Provider [phone] Allergies No known active allergies Medications atenolol [...] 02/28/20 24 Coronary artery disease invo lving quechan coronary artery of quechan heart without angina pectoris 02/28/2024 Hyperlipidemia 02/28/2024 [...] st Contact Info) Description 03/02/2024 Procedure Pass [facility] [address] [place] [address] 08/23/2025 2:30 PM EDT Appointment [facility] [address] [place] [address] Noé Armas MD, MSc [address] [facility] [place] [address] [email or web address] 08/23/2025 3:30 PM EDT Office Visit [facility] Medicine [address] [facility] [address] [facility], [address] [place] [address] Klely Mack, CERTIFIED TECHNICIAN [address] [facility] [address] [place] [address] [email or web address] Health Maintenance Due Date Last Done Comments [...] this topic Medical Devices Implanted Type Area Loader Helper Device Identifier Shelf Expiration Date Model / Serial / Lot Right Thr Iol Lens Intraocular Ct Rafaela 602 21.0d - [id number] Implanted:Qty: 1 on 03/27/2022 by Corky Jim MD at [facility] Right: Eye [employer] 12/15/2024 CT RAFAELA 602 21.0D / [id number] / Insurance MEDICARE PART A & B [facility]IC[facility] PART A & [facility] PART [facility] & [facility] B [facility] MEDIC[facility] PART A & B [facility] Care Teams Joiners Supervisor Relationship Specialty Start Date End Date Zehra Onofre MD [address] [place] [id number] PCP - General 03/05/24 Additional Source Comments The information contained in this document represents components of the legal health record. It is not the complete legal health record.[facility]
--- OUTSIDE RECORDS SUMMARY | 2024-11-27 09:24 | XMS_ITS | Encounter Summary ---
Author Organization [facility] Address [address] [place] [address] Phone Care Team Providers Care Typesetting Machine Operator/Tender Name Role Phone Dunia Hansen MD Primary Care Provider [phone] Zehra Onofre MD Primary Care Provider [phone] Encounter Details Date Type Department Care Team (Late st Contact Info) Description 07/30/2022 Procedure Pass [facility] [place] [address] [place] [address] Social History Tobacco Use Types Packs/Day Years [...] on file 07/14/2022 No 07/14/2022 No 07/14/2022 Sex and Gender Information Value Date Recorded Sex Assigned at Male 03/28/2023 8:12 AM EST Legal Sex Male 5:46 PM EST Gender Identity Male 03/28/2023 8:12 AM EST Sexual Orientation Straight 03/28/2023 8: 12 AM EST documented as of this encounter Plan of Treatment Upcoming Encounters Date Type Department Care Team (Late st Contact Info) Description 03/02/2024 Procedure Pass [facility] [place] [address] [place] [address] 08/23/2025 2:30 PM EDT Appointment [facility] US [address] [place] [address] Noé Armas MD, MSc [address] [facility] [place] [address] [email or web address] 08/23/2025 3:30 PM EDT Office Visit [facility] Cardi[facility] Medicine [address] [facility], 5th Floor, [address] [place] [address] Kelly Mack, MEENU 32 [facility] [address] [place] [address] [email or web address] documented as of this encounter Visit Diagnoses Not on filedocumented in this encounter Care Teams Typesetting Machine Operator/Tender Relationship Specialty Start Date End Date Dunia Hansen MD [address] [place] [address] PCP - General 02/21/22 03/04/24 Zehra Onofre MD [address] [address] PCP - General 03/05/24 Dr. Charles Ramsey [facility] Boiler Tube Blower 03/15/22 03/04/24 documented as of this encounter Additional Source Comments The information contained in this document represents components of the legal health record. It is not the complete legal health record.[facility]
== END 2024-11-27 10:35 | disposition home or self-care (01) ==
LOC: HO.HNS 08:45
PROVIDERS: Visit Provider Physician Assistant
DX: M54.9 Dorsalgia, unspecified (principal)
CPT/HCPCS: 99213

== ENCOUNTER → 2024-11-27 08:44 | Outpatient (BNVA) | payer MEDICARE, MEDICAID, SELFPAY | PROVIDERS: Visit Provider Physician Assistant | DX: M54.9 Dorsalgia, unspecified (principal) | CPT/HCPCS: 99212 ==

== ENCOUNTER 2025-01-19 07:45 | Inpatient (IN) | payer MEDICARE, MEDICAID, SELFPAY ==
--- OUTSIDE RECORDS SUMMARY | 2024-09-19 04:00 | XMS_ITS ---
Author Organization [facility] Address [address] [place] [address] Care Team Providers Care Tube Inspector Name Role Phone Migration, Provider Unavailable Unavailable REASON FOR VISIT EMR-Jason Encounters Encounter Location Date Provider Diagnosis Migrated_Facility 0 0 09/19/2024 Provider Migration Plan Of Treatment Medication Medication Name Sig Start Date Stop Date Notes tadalafil 20 mg tablet 20 mg TABLET take 1 tablet by oral route every day as needed ORAL 03/20/2021 06/12/2021 *Reorder from [facility] for eRx and Interaction Alerts* Atenolol 50 MG Tablet TAKE ONE TABLET BY MOUTH DAILY Oral 01/31/2021 10/06/2021 pregabalin 100 mg capsule 100 mg CAPSULE take 1 capsule by oral route 3 times every day ORAL 11/22/2020 06/12/2021 *Reorder from [employer] for eRx and Interaction Alerts* Allopurinol 100 [...] every day ORAL 07/04/2020 03/20/2021 *Reorder from [facility] for eRx and Interaction Alerts* Rosuvastatin Calcium [...] Notes * David CALVERTDOB:1960 (64 yo M)Acc No.[id number]:09/19/2024 Patient: David OREILLY :1960 A ge:64 Y S ex:Male Address:[facility], [address], [place], [address] * Refills Stop Allopurinol Tablet, 100 MG, [...]
--- OUTSIDE RECORDS SUMMARY | 2024-09-20 04:00 | XMS_ITS ---
Author Organization [facility] Address [address] [place] [address] Care Team Providers Care Swedish Masseuse Name Role Phone Migration, Provider Unavailable Unavailable Allergies No Known Allergies REASON FOR VISIT EMR-[facility] Medications Medication SIG (Take, Route, Frequency, Duration) [...] 2 times every day ORAL *Reorder from [employer] for eRx and Interaction Alerts* 06/12/2021 Active [...] * David CALVERT NaldoDOB:1960 (64 yo M)Acc No.[id number]:09/20/2024 Patient: David OREILLY :1960 A ge:64 Y S ex:Male Address:[address], [address], [place] [address] Subjective: * Chief Complaints: * E MR-Jason [...] ORAL , Notes to Pharmacist: *Reorder from [employer] for eRx and Interaction Alerts*Pantoprazole Sodium 40 [...] ORAL , Notes to Pharmacist: *Reorder from [facility] for eRx and Interaction Alerts*Taking Pantoprazole [...]
[2025-01-12 10:34] VITALS: BP 128/72; PULSE 65; RESP 18; O2SAT 97; BMI 33.8
--- NOTE | 2025-01-12 11:01 | HO.ANESPROP2 ---
Documented by User: Shae Hollingsworth NP 01/13/25 08:54 HPI - Anesthesia Eval Consult details Narrative: 64yo M for L2-3, L3-4, L4-5, L5-S1 Oblique Lumbar Interbody Fusion (possible conversion to TKLIF), 01/19/15 No recent illness No CP/SOB with house work Cardiac optimized. Follows [facility] for: CHF - euvolemic at 11/2024 office visit and PAT eval, EF 60% AAA/Marfan - 4.4cm on echo. Also follows [facility] yearly (02/2024) for obs (surgical cut off with Marfan's = 5cm) CAD s/p LAD PCI 2011 Pacer (2nd deg AV block) - last interrogation 12/2024 OK Spinal stimulator in situ - control with glory on phone Anesthesia Pre-Procedure Meds Is the patient on any of the following meds?: GLP1/DPP4 PMFSH Active Problems Active Problems: All Active Problems Back pain (Acute) Past Medical History Medical History History of revision of total replacement of right hip joint Heartburn History of [facility] fever Aortic root dilatation Pacemaker Psoriasis Vitamin D deficiency AV block Spinal stenosis Obesity Neuropathy Former smoker HTN (hypertension) Marfan syndrome Dyslipidemia CAD (coronary artery disease) (~2011) Ascending aortic aneurysm CHF (congestive heart failure) Family History Family history of problems with anesthesia: No Surgical History Surgical History (Updated 01/19/25 @ 08:03 by Maribell Choudhary RN) Hx of artificial lens replacement History of right hip replacement (~2016) Hx of cardiac catheterization Hx of knee surgery Hx of eye surgery History of esophagogastroduodenoscopy (EGD) H/O colonoscopy History of heart artery stent S/P insertion of spinal cord stimulator (~2022) History of permanent cardiac pacemaker placement (~06/2019) History of Problems with Anesthesia: No Social History Social History Are you a primary long term care administrator to a significant other at home: No Do you presently have visiting nurse or other home services: No Patient Tobacco Use Status: Former Tobacco user Smoked in Last 30 Days: No Use of substances other than those prescribed or required for medical reasons: No Have you been hit, kicked, punched, or otherwise hurt by someone within the past year? If so, by whom?: No Are you DNR?: No Advance Directives: No Advance Directives Information Provided: No Advance Directives on File: No Meds Allergies Allergy/AdvReac Type Severity Reaction Status Date / Time No Known Allergies Allergy Verified 01/19/25 08:04 Home Medications ?Medication ?Instructions ?Recorded ?Confirmed ?Last Taken ?Type allopurinol 100 mg tablet 100 mg PO DAILY 01/12/25 01/19/25 Unknown History amitriptyline 25 mg tablet 50 mg PO DAILY 01/12/25 01/19/25 01/19/25 04:30 History aspirin 81 mg tablet,delayed 81 mg PO DAILY 01/12/25 01/19/25 01/08/25 History release atenolol 50 mg tablet 50 mg PO DAILY 01/12/25 01/19/25 01/19/25 04:30 History cholecalciferol (vitamin D3) 25 25 mcg PO DAILY 01/12/25 01/19/25 Unknown History mcg (1,000 unit) tablet diclofenac sodium 1 % topical gel 2 g topical BID PRN Pain 01/12/25 01/19/25 Unknown History fluocinonide 0.05 % topical cream 1 appl topical BID PRN Rash 01/12/25 01/19/25 Unknown History losartan 100 mg tablet 100 mg PO DAILY 01/12/25 01/19/25 01/19/25 04:30 History pregabalin 150 mg capsule 150 mg PO TID 01/12/25 01/19/25 01/19/25 04:30 History rosuvastatin 40 mg tablet 40 mg PO DAILY 01/12/25 01/19/25 01/19/25 04:30 History semaglutide (weight loss) 1 mg/0.5 1 mg subcut QWEEK 01/12/25 01/19/25 01/04/25 History mL subcutaneous pen injector (Hanna) Exam Height,Weight and Vital Signs: Height 6 ft 4 in Weight 126.099 kg Last Vital Signs Pulse 65 01/12/25 10:34 Resp 18 01/12/25 10:34 BP 128/72 01/12/25 10:34 Pulse Ox 97 01/12/25 10:34 O2 Del Method Room Air 01/12/25 10:34 Pertinent Lab Results Pertinent Lab Results: Lab Results 01/12/25 01/12/25 Range/Units 11:19 11:27 WBC 7.3 (4.8-10.8) X10*3/uL RBC 5.20 (4.60-5.80) X10*6/uL Hgb 14.3 (14.0-18.0) g/dl Hct 43.9 (42.0-52.0) % MCV 84.4 (80.0-98.0) fL MCH 27.5 (27.0-33.0) pg MCHC 32.6 (31.0-36.0) g/dl RDW 13.7 (11.0-16.0) % Plt Count 225 (160-400) X10*3/uL MPV 8.3 L (9.4-12.4) fL Absolute Nucleated RBC 0.000 (0.0-0.012) X10*3/uL Nucleated RBC % (auto) 0.0 (0.0-0.2) /100WBC Sodium 142 (135-145) mmol/L Potassium 4.4 (3.3-5.1) mmol/L Chloride 107 (96-108) mmol/L Carbon Dioxide 29 (22-29) mmol/L Anion Gap 10 L (12-20) BUN 17 H (9-16) mg/dL Creatinine 1.12 (0.5-1.4) mg/dL Estim Creat Clear Calc 95.3 Estimated GFR > 60 Random Glucose 88 (60-115) mg/dL Calcium 9.7 (8.4-10.2) mg/dL Blood Type O Positive Antibody Screen NEGATIVE Narrative Narrative: EKG 11/2024 V-paced @ 67 ECHO 02/2024 Nml Biventricular function Aortic root and ascending aorta are dilated (4.4cm) Trace aortic regurg with a likely tricuspid aortic valve Pacer Device Check 12/2024 As/Lasting Floorworker Dependent. Nml device function. Ap 0.1%, Lasting Floorworker 100%. Leads stable. Atrial lead set to pace unipolar from [facility]. No changes. Baterry life estimated at 5.3 years. Airway Mallampati Class: III TM Dist: >3cm Neck ROM: Full Loose/Missing/Broken Teeth: Yes (Upper front permament bridge, molars extracted) Heart: RRR Lungs: CTAB Assessment and Plan Assessment Anesthesia Assessment: Anesthesia Plan Discussed and PAT Visit Final Anesthetic Review Family History of Problems with Anesthesia: No History of Problems with Anesthesia: No Documented by User: Vu Vance MD 01/19/25 09:06 [facility] Past Medical History Medical History History of revision of total replacement of right hip joint Heartburn History of [facility] fever Aortic root dilatation Pacemaker Psoriasis Vitamin D deficiency AV block Spinal stenosis Obesity Neuropathy Former smoker HTN (hypertension) Marfan syndrome Dyslipidemia CAD (coronary artery disease) (~2011) Ascending aortic aneurysm CHF (congestive heart failure) Surgical History Surgical History (Updated 01/19/25 @ 08:03 by Maribell Choudhary RN) Hx of artificial lens replacement History of right hip replacement (~2016) Hx of cardiac catheterization Hx of knee surgery Hx of eye surgery History of esophagogastroduodenoscopy (EGD) H/O colonoscopy History of heart artery stent S/P insertion of spinal cord stimulator (~2022) History of permanent cardiac pacemaker placement (~06/2019) Social History Social History Are you a primary long term care administrator to a significant other at home: No Do you presently have visiting nurse or other home services: No Patient Tobacco Use Status: Former Tobacco user Smoked in Last 30 Days: No Use of substances other than those prescribed or required for medical reasons: No Have you been hit, kicked, punched, or otherwise hurt by someone within the past year? If so, by whom?: No Are you DNR?: No Advance Directives: No Advance Directives Information Provided: No Advance Directives on File: No Meds Allergies Allergy/AdvReac Type Severity Reaction Status Date / Time No Known Allergies Allergy Verified 01/19/25 08:04 Home Medications ?Medication ?Instructions ?Recorded ?Confirmed ?Last Taken ?Type allopurinol 100 mg tablet 100 mg PO DAILY 01/12/25 01/19/25 Unknown History amitriptyline 25 mg tablet 50 mg PO DAILY 01/12/25 01/19/25 01/19/25 04:30 History aspirin 81 mg tablet,delayed 81 mg PO DAILY 01/12/25 01/19/25 01/08/25 History release atenolol 50 mg tablet 50 mg PO DAILY 01/12/25 01/19/25 01/19/25 04:30 History cholecalciferol (vitamin D3) 25 25 mcg PO DAILY 01/12/25 01/19/25 Unknown History mcg (1,000 unit) tablet diclofenac sodium 1 % topical gel 2 g topical BID PRN Pain 01/12/25 01/19/25 Unknown History fluocinonide 0.05 % topical cream 1 appl topical BID PRN Rash 01/12/25 01/19/25 Unknown History losartan 100 mg tablet 100 mg PO DAILY 01/12/25 01/19/25 01/19/25 04:30 History pregabalin 150 mg capsule 150 mg PO TID 01/12/25 01/19/25 01/19/25 04:30 History rosuvastatin 40 mg tablet 40 mg PO DAILY 01/12/25 01/19/25 01/19/25 04:30 History semaglutide (weight loss) 1 mg/0.5 1 mg subcut QWEEK 01/12/25 01/19/25 01/04/25 History mL subcutaneous pen injector (Wegovdayday) Exam Airway Mallampati Class: II Assessment and Plan Final Anesthetic Review NPO: Yes ASA Class: III Final Preanesthetic Review: No Changes in Pt Med Stat, Meds/Allgs Chart Reviewed, Consent Obtained/Reviewed and Anes Risks/Benef Reviewed Patient Risk: Intermediate Procedure Risk: Intermediate Anesthetic Plan Anesthetic Plan: MAC: and Agree w/ Assess. and Plan Disposition: Standard PACU
[2025-01-12 11:38] LABS: Hematocrit 43.9 % (42.0-52.0); Hemoglobin 14.3 g/dl (14.0-18.0); Mean Corpuscular HGB Conc 32.6 g/dl (31.0-36.0); Mean Corpuscular Hemoglobin 27.5 pg (27.0-33.0); Mean Corpuscular Volume 84.4 fL (80.0-98.0); NRBC Abs Auto 0.000 X10*3/uL (0.0-0.012); NRBC Pct Auto 0.0 /100WBC (0.0-0.2); Platelet Count 225 X10*3/uL (160-400); Red Blood Count 5.20 X10*6/uL (4.60-5.80); White Blood Count 7.3 X10*3/uL (4.8-10.8)
[2025-01-12 12:27] LABS: Anion Gap 10 (12-20); Blood Urea Nitrogen 17 mg/dL (9-16); Calcium 9.7 mg/dL (8.4-10.2); Carbon Dioxide 29 mmol/L (22-29); Chloride 107 mmol/L (96-108); Creatinine Clr Calc Pharmacy 95.3; Estimated Glomerular Filt Rate > 60; Potassium 4.4 mmol/L (3.3-5.1); Sodium 142 mmol/L (135-145)
[2025-01-19] VITALS (11 sets, daily range): BP systolic 82–113; BP diastolic 46–64; PULSE 59–75; RESP 8–17; TEMP 36.2–36.7; O2SAT 96–100; BMI 34.6
--- NOTE | ~2025-01-19 | FL_ITS ---
EXAMINATION: XR FLUOROSCOPY WITH IMAGES CLINICAL INFORMATION: L2-3, L3-4, L4-5, L5-S1 OLIF COMPARISON: X-ray 11/09/2024 TECHNIQUE: Fluoroscopy time: 1:13.34 minutes DAP: 1116 mGycm2 Images: 2 FINDINGS: Fluoroscopy provided in the operating room. 2 images demonstrate posterior spinal fusion hardware spanning L2-S1. Interbody devices at L2-3, L3-4, L4-5, L5-S1. Radiodense device projected over the posterior soft tissues.. FL/FL guidance in OR IMPRESSION: Fluoroscopy provided for procedure. See operative report for details. Electronically signed by: Catalino Llamas MD 01/20/2025 08:54 AM [facility]
--- NOTE | ~2025-01-19 | CT_ITS ---
EXAMINATION: CT LUMBAR SPINE WITHOUT CONTRAST CLINICAL INFORMATION: Postoperative instrumentation check. COMPARISON: No prior CT. Radiographs of the lumbar spine 11/09/2024. TECHNIQUE: Spiral CT imaging of the lumbar spine performed in axial plane without contrast. Multiplanar reformatted images were constructed from the axial data set. This CT examination was performed using dose optimization techniques as appropriate, variously including the following: *Automated exposure control *Adjustment of mA and/or kV according to patient size (this includes techniques or standardized protocols for targeted exams where dose is matched to indication/reason for exam; i.e. extremities or head) *Use of iterative reconstruction technique FINDINGS: There is no significant scoliosis. There is a normal lordosis. There is no significant subluxation. There is a trace 2 mm retrolisthesis of L5 on S1. Alignment is otherwise anatomic. There is a right sided anterolateral osteophytes/endplate fracture of L2, nondisplaced; (best seen series 5, image 199; series 7, image 27; series 8 image 60). There has been recent posterior instrumented fusion of L2-S1 with bilateral transpedicular screws, posterior connecting rods, and intervening disc prostheses. The L5-S1 disc prosthesis has a lower endplate oblique screw associated. The hardware appears intact, well seated, without periprosthetic lucency. No additional fracture is identified of the lumbar spine. There is no suspicious bone lesion. There is a bone island in the right sacral ala. The sacrum is intact. The SI joints appear grossly normal. Spinal stimulator leads are noted entering from the left, at the T10-T11 interlaminar space. Evaluation of the central canal at the intervertebral disc levels is limited due to streak artifact from adjacent hardware. No definite high-grade central canal stenosis is evident. There are scattered neural foraminal narrowings bilaterally, most significant at L4-5, and on the left at L5-S1. There is also significant left neural foraminal narrowing at T11-T12. Imaged soft tissues demonstrate expected postoperative changes with foci of gas and soft tissue stranding present in the left anterior pararenal space, and dorsal to the instrumented fusion. There are small layering gallstones within the gallbladder. There is nonspecific bilateral perirenal stranding. There is renal scarring most notable involving the left kidney. There are bilateral poorly delineated renal cysts. No hydronephrosis or calculus. There is moderate atheromatous calcification of the aorta without aneurysm. There is trace left pleural fluid. Imaged lung bases otherwise clear. CT/CT lumbar spine wo IV con IMPRESSION: 1. There has been recent posterior instrumented fusion with discectomy of L2-S1. There is a right-sided anterolateral inferior L2 endplate/osteophyte fracture which is nondisplaced. See above for details. There is no additional complication of the fusion hardware. 2. There are expected postoperative changes with foci of gas in the left anterior pararenal space, and dorsal paraspinal soft tissues. 3. There are additional ancillary findings as detailed in the body of the report. Electronically signed by: Jerry Shabazz MD 01/20/2025 09:42 AM [facility]
--- OUTSIDE RECORDS SUMMARY | 2025-01-19 07:52 | XMS_ITS | Encounter Summary ---
Author Organization [facility] Address [address] [place] [address] Phone Care Team Providers Care Laboratory Development Technician Name Role Phone Dunia Hansen MD Primary Care Provider [phone] Zehra Onofre MD Primary Care Provider [phone] Encounter Details Date Type Department Care Team (Late st Contact Info) Description 03/27/2022 Procedure Pass [facility] [address] [place] [address] Social History Tobacco Use Types Packs/Day Years [...] st Contact Info) Description 03/02/2024 Procedure Pass [facility] Cardiac US [address] [place] [address] 08/23/2025 2:30 PM EDT Appointment [facility] Cardiac US [address] [place] [address] Noé Armas MD, MSc [address] [place], [place] [id number] [place] [id number] [email or web address] 08/23/2025 3:30 PM EDT Office Visit [facility] Cardiovascular Medicine [address] [facility], 5th Floor, [address] [place] [address] Kelly Mack CNP 32 [facility] [address] [place] [address] [email or web address] documented as of this encounter Visit Diagnoses Not on filedocumented in this encounter Care Teams Laboratory Development Technician Relationship Specialty Start Date End Date Dunia Hansen MD [address] [place] [address] PCP - General 02/21/22 03/04/24 Zehra Onofre MD [address] [address] PCP - General 03/05/24 Dr. Charles Ramsey [facility] Fire Prevention Officer 03/15/22 03/04/24 documented as of this encounter Additional Source Comments The information contained in this document represents components of the legal health record. It is not the complete legal health record.[facility]
--- OUTSIDE RECORDS SUMMARY | 2025-01-19 07:54 | XMS_ITS | Encounter Summary ---
Author Organization [facility] Address [address] [place] [address] Phone Care Team Providers Care Retirement Officer Name Role Phone Dunia Hansen MD Primary Care Provider [phone] Zehra Onofre MD Primary Care Provider [phone] Encounter Details Date Type Department Care Team (Late st Contact Info) Description 07/30/2022 Procedure Pass [facility] [place] [address] [place] [address] Social History Tobacco Use Types Packs/Day Years [...] st Contact Info) Description 03/02/2024 Procedure Pass [facility] [place] [address] [place] [address] 08/23/2025 2:30 PM EDT Appointment [facility] [place] US [address] [place] [address] Noé Armas MD, MSc 55 [facility] [place] [address] [email or web address] 08/23/2025 3:30 PM EDT Office Visit [facility] [place] [address] [facility], 5th Floor, [address] [place] [address] Kelly Mack, MEENU 32 [facility] [address] [place] [address] [email or web address] documented as of this encounter Visit Diagnoses Not on filedocumented in this encounter Care Teams Retirement Officer Relationship Specialty Start Date End Date Dunia Hansen MD [address] [place] [address] PCP - General 02/21/22 03/04/24 Zehra Onofre MD [address] [address] PCP - General 03/05/24 Dr. Charles Ramsey [facility] Gun Stock Checker 03/15/22 03/04/24 documented as of this encounter Additional Source Comments The information contained in this document represents components of the legal health record. It is not the complete legal health record.[facility]
--- OUTSIDE RECORDS SUMMARY | 2025-01-19 07:54 | XMS_ITS | Clinical Summary ---
Author Organization [facility] Address [address] [facility] [address] [place] [address] Phone Care Team Providers Care Metal Room Dental Technician Name Role Phone Zehra Onofre MD Primary Care Provider Allergies No known active allergies Medications atenolol [...] 02/28/20 24 Coronary artery disease invo lving [place] coronary artery of [place] heart without angina pectoris 02/28/2024 Hyperlipidemia 02/28/2024 [...] st Contact Info) Description 03/02/2024 Procedure Pass [facility] Cardiac [address] [place] [address] 08/23/2025 2:30 PM EDT Appointment [facility] Cardiac 55 [place] [address] Noé Armas MD, MSc 55 [facility] [place] [address] [email or web address] 08/23/2025 3:30 PM EDT Office Visit [facility] Cardiovascular Medicine [address] [facility], 5th Floor, [address] [place] [address] Kelly Mack, WEDGER MACHINE 32 [facility] [address] [place] [address] [email or web address] Health Maintenance Due Date Last Done Comments [...] 09/07/2021 09/07/2020 SCREENING FOR DIABETES 09/08/2023 09/07/2020 BLOOD PRESSURE 08/31/2024 03/02/2024 ABDOMINAL AORTIC ANEURYSM (A AA) SCREENING 09/10/2024 09/07/2020 INFLUENZA VACCINE (#1) 2024 COVID-19 VACCINE ( - 2024-2 6 season) 2024 RSV VACCINE (1 - 1-dose 75+ series) [...] this topic Medical Devices Implanted Type Area Vamp Cut Out Worker Device Identifier Shelf Expiration Date Model / Serial / Lot Right Thr Iol Lens Intraocular Ct Rafaela 602 21.0d - [id number] Implanted:Qty: 1 on 03/27/2022 by Corky Jim MD at [facility] [place] Right: Eye [employer]ICIA [employer] 12/15/2024 CT RAFAELA 602 21.0D / [id number] / Insurance [facility] MEDICARE PART A & B [facility] MEDIC[facility] PART A & B [facility] & B [facility] Care Teams Metal Room Dental Technician Relationship Specialty Start Date End Date Zehra Onofre MD [address] [place] [address] PCP - General 03/05/24 Additional Source Comments The information contained in this document represents components of the legal health record. It is not the complete legal health record.[facility]
--- OUTSIDE RECORDS SUMMARY | 2025-01-19 07:55 | XMS_ITS | Clinical Summary ---
Author Organization [facility] Address [address] [place] [address] Care Team Providers Care Mental Retardation Aide Name Role Phone Unavailable Primary Care Provider [...] 09/10/2009 Imm-Zoster, Recombinant (1 of 2) 09/10/2009 Alcohol and Drug Screen 03/18/2024 Depression Annual Screen 03/18/2024 Falls Prevention 09/10/2024 [id number] (1 - season) 2024 Imm-Influenza (#1) 2024 Hypertension Screening (#1) 03/10/2025 Tobacco Screening 03/10/2025 03/10/2024 Insurance [place] DENT[place] SAF[place]Y NET DENTAL SAFETY NET DENTAL
--- OUTSIDE RECORDS SUMMARY | 2025-01-19 07:55 | XMS_ITS | Clinical Summary ---
Author Organization [facility] Address [address] [place] [address] Phone Care Team Providers Care Law Office Assistant Name Role Phone Unavailable Primary Care Provider [...] declining kidney function unknown. 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 ZKDHE-aadpemj-wfi available your doctors office Recently, patients have had greater success obtaining the updated November 2022 COVID vaccine through larger chain pharmacies, rather than smaller local pharmacies Alternative-for patients who are uninsured, or whose insurance does not cover the cost of vaccinations [address], [place] [address] We are currently offering COVID-19 vaccinations to eligible persons 6 months and older. We offer Pfizer and Moderna at every COVID-19 vaccination clinic. Vaccine Clinics are held as follows: 6 months - 5 years of age: Mondays BY APPOINTMENT ONLY from 9am - 2:30pm 5+ years: Wednesdays BY APPOINTMENT ONLY from 1:30pm - 3:30pm To schedule an appointment for a vaccine call [phone]. Recommend seasonal influenza vaccine every fall, as soon as possible. Available at your doctor's office, in pharmacies, and at the [facility] Recommend - shingles vaccine, Shingrix - [...] Immunization Administration Dates Next Due DTaP 12/09/2008 Influenza, Injectable, Quadrivalent, Preservativ e Free 05/21/2023,03/09/2019 Influenza, split virus, trivalent, PF 01/10/2022 Moderna Sars-cov-2 Vaccination 01/10/2022 Zoster 09/23/2014 Family [...] - season) 2024 Influenza Vaccine (#1) 2024 4, 01/10/2022, 03/09/2019
--- OUTSIDE RECORDS SUMMARY | 2025-01-19 07:55 | XMS_ITS | Patient Health Record ---
Author Organization [facility] Address [address] [facility] [place] [address] Care Team Providers Care Lift Truck Mechanic Name Role Phone Migration, Provider Unavailable Unavailable Allergies No Known Allergies Reason For Referral No Information Medications Medication SIG (Take, Route, Frequency, Duration) [...] 2 times every day ORAL *Reorder from [employer] for eRx and Interaction Alerts* 06/12/2021 Active Furosemide 20 MG Tablet take 1 tablet by ORAL route every day Oral 08/04/2021 Active Pantoprazole Sodium 40 MG Tablet Delayed Release take 1 tablet by oral route every day Oral 03/20/2021 Active Rosuvastatin Calcium 40 MG Tablet take 1 tablet by oral route every day Oral 10/06/2021 Active Atenolol 50 MG Tablet TAKE ONE TABLET BY MOUTH DAILY Oral 10/06/2021 Active Social History Social History Additional Details Category Social Info Options Details Migrated Social History Migrated Social History Have you used tobacco: R Encounters Encounter Location Date Provider Diagnosis Migrated_Facility 0 0 09/20/2024 Provider Migration Migrated_Facility 0 0 09/19/2024 Provider Migration Plan Of Treatment No Information Medical (General) History Surgical History Surgery Date(Month/Year) Sx_Procedure : Hip Surgery Sx_Procedure : knee reconstructive Sx_Procedure : pacemaker Sx_Procedure : stent placement
--- OUTSIDE RECORDS SUMMARY | 2025-01-19 07:55 | XMS_ITS | Clinical Summary ---
Author Organization [facility] [address] [place] [address] Phone Care Team Providers Care Binder And Box Builder Name Role Phone Unavailable Primary Care Provider Unavailabl e Allergies No known active allergies Active Problems Problem Noted Date Diagnosed Date Back pain 12/02/2024 Degeneration of lumbar intervertebral disc 12/02 Encounters Date Type Department Care Team Description 01/08/2025 10:00 AM EDT Office Visit [facility] [address] [place] [address] [place] [phone] Xu Arreola MD Degeneration of lumbar intervertebral disc (Primary Dx) 12/02/2024 Orders Only [facility] Access [address] [place] [phone] Sintia Espinoza from Last 3 Months Social History Tobacco Use Types Packs/Day Years Used Date Smoking Tobacco: Never Assessed Sex and Gender Information Value Date Recorded Sex Assigned at Not on file Legal Sex Male 1:28 PM EDT Gender Identity Not on file Sexual Orientation Not on file Plan of Treatment Health Maintenance Due Date Last Done Comments Pneumococcal Vaccine: 50+ Years (1 of 2 - PCV) 09/10/1978 Colorectal Cancer Screening: Annual FOBT 09/10/2008 Colorectal Cancer Screening: Colonoscopy 09/10/2008 Colorectal Cancer Screening: Sigmoidoscopy 09/10/2008 Influenza Vaccine (#1) 2024 , 01/10/2022, 03/09/2019 Hepatitis B Vaccine Aged Out No longe r eligible based on patient's age to complete this topic Insurance Medicare Medicaid [place]
--- NOTE | 2025-01-19 08:22 | PHA.MEDREC ---
Pharmacy Consult ? Medication Reconciliation Pharmacy has reviewed the medication reconciliation done by RN.
[2025-01-19] MEDS: Lactated Ringers 1,000 ML 50 ML IVCONT (08:25)
--- NOTE | 2025-01-19 09:14 | MHC.SHP ---
Pre-Procedural Eval Section A - 24 Hr Update-Section A only Date of Service: 01/19/25 The patient is an INPATIENT: No Changes since office visit: No Cold of Flu in the past 2 weeks, No New Medical Problems, No Changes in Medication and No Patient answered all questions The patient has been examined within 24 hours of the surgical procedure. The History & Physical has been completed within 30 days and I have reviewed it.: No Section B - Complete if H&P > 30 days Chief Complaint: s/p L2S1 lumbar fusion Allergies: Allergies Allergy/AdvReac Type Severity Reaction Status Date / Time No Known Allergies Allergy Verified 01/19/25 08:04 Review of Systems Sugical H&P ROS: Negative: Constitution, Cardiovascular, Respiratory, Neurological, Psychiatric, Hem-Onc, Allergic/Immunologic, Gastrointestinal, Genitourinary, Musculoskeletal, Integumentary, Endocrine and Eyes/Ears/Nose/Throat Exam Surgical H&P Exam: Normal: HEENT, Normal: Heart, Normal: Lungs, Normal: Extremities, Normal: Abdomen, Normal: Skin and Normal: Neurological (awake, alert,oriented x 3 ) Plan Diagnosis/Plan: Unchanged L2-S1 oblique lumbar interbody fusion, possible conversion to transkambin L2-3 Time Spent With Patient Time: Total time managing care of this patient today _5___ minutes.
--- NOTE | 2025-01-19 13:58 | W.PM.OPN ---
Operative Note Operative Note Date of Service: 01/19/25 Narrative: Preop Diagnosis: 1.) Lumbar degenerative disc disease, spinal stenosis and foraminal stenosis 2.) Back pain Procedure: 1) L2-3, L3-4, L4-5 and L5-S1 discectomy, arthrodesis and implantation cage through an anterolateral, retroperitoneal approach 2) L2 the S1 posterior instrumented fusion 3) allograft 4) Injection of 10 cc of Exparel at the transverse process for a muscular erector spinae block and additional Exparel in paravertebral tissue for postop management 5) neuro monitoring Consent Informed Consent was obtained for this operation. I have explained the nature, purpose and benefits of the operation. I have discussed the risks and benefit of the operation including possible complications or adverse events with patient/family. Alternative(s) were discussed with the patient with their relative benefits and risks as well as the consequences of not accepting the operation were included in obtaining consent. Surgeon: ANGELITA VIRK MD, PHD Co-surgeon: PACO ARREOLA MD Urologist Md: briana Moreno Description of Procedure This 64-year-old male with Marfan syndrome is suffering from intractable low back pain. Imaging reviews lumbar degenerative disc disease L2-S1 with a near collapse disc at L4-5, retrolisthesis at L2-3 and a lateral listhesis at L2-3 which is causing mild lumbar degenerative scoliosis, spinal stenosis and foraminal stenosis. The patient was offered a minimally invasive lumbar fusion through an anterolateral, retroperitoneal approach followed by a posterior instrumented fusion L2-S1. The procedure complications were explained. The patient was consented. The patient was brought to the operating room and endotracheally intubated. The patient was turned in the lateral position with the left side up. Prep and drape was done followed by timeout. Dr. Arreola, co-surgeon, provided the access to the L5-S1 disc space through an anterolateral, retroperitoneal approach. He will dictate the approach in a separate operative note. When the L5-S1 disc space was exposed I took over the procedure. An annulotomy was done followed by a partial discectomy. Sequential trial implants were inserted and advanced towards the posterior wall of the disc space. I completed the discectomy and prepared the endplates. Then a 34 by 26 x 13 mm and 8 degree lordosis Astura cage filled with allograft was inserted into the disc space under fluoroscopic guidance. The cage was locked down with 1 nail of 25 mm into the S1 vertebral body. The retractors were removed. Then attention was turned to the L2-L5 disc spaces. Sequential dilators were docked in the anterior one third of the L4-5 disc space followed by a retractor. The retractor was opened. The L4-5 disc space was exposed. An annulotomy was done after which an elevator White was used to release the disc material from its endplates and to perforate the contralateral side. The disc space was severely collapsed and hardly any disc material was retrieved. An 8 mm height trial implant was inserted. The discectomy was completed. The endplates were prepared. An 50 x 8 mm with 0 degree lordosis 4 web cage filled with allograft was inserted into the disc space under fluoroscopic guidance. This resulted in synagogue of the disc space and increasing the lordosis. A separate incision was made for the L3-4 and L2-3 levels. The muscle fascia was opened and the muscle layer was split bluntly to enter the urethra peritoneal space. The retractor was inserted over the L3-4 level. Sequential dilators were placed of the L3-4 disc space. An annulotomy was done. An initial diskectomy was done. Trial implants of 8 mm and 10 mm with 6 degree lordosis were inserted. Diskectomy was completed. The endplates were prepared. A 50 x 10 mm and 6 degree lordosis 4 web cage filled with allograft was inserted in this level. X-rays confirmed correct position of the implants in the midline and again producing additional lordosis. Finally the L2-3 level was approached. Sequential dilators were inserted. Retractor was put over the L2-3 disc space. Partial diskectomy was done. Trial implants were inserted. The diskectomy was completed and the endplates were prepared after which a 50 x 12 mm and 6 degree lordosis 4 web cage filled with allograft was inserted. Neuro monitoring revealed no abnormalities during this part of the procedure.Hemostasis was done. The incision used for L2-L4 was closed in 2 layers with an 0 Vicryl for the fascia and a 3-0 Vicryl subdermal layer. The incision in the lower abdominal quadrant was closed with a running nylon for the fascia, 3-0 for the subdermal layer and a Monocryl. Steri-Strips are used to approximate the incisions. An OpSite with Tegaderm was used to cover the incisions. This marked first part of the procedure. The patient was turned prone on the Ray spine table. 2C arms were installed for fluoroscopy. Prep and drape was done followed by a second timeout. Injection of 10 cc of Exparel at the bilateral L3 transverse processi for a muscular erector spinae block. Four paramedian incisions were made lateral from the L2-S1 pedicles. The muscle fascia was opened after which the muscle layer was split bluntly to expose the posterolateral gutter. The following steps were taken. A pediguard tap was used to create a transpedicular trajectory into the vertebral body. A K wire was placed. A specially designed instrument was advanced over the K wire to decorticate the posterolateral gutter in preparation for the posterolateral fusion. A pedicle screw was advanced over the K wire and the K wire was removed. The steps were done for the bilateral L2, L3, L4, L5 and S1 pedicles. A total of 10 screws were placed with a diameter of 6.5 x 45 mm. Pedicle screws were connected with 140 mm jerod on the right side and 150 mm jerod on the left side and locked down with locking caps. The extension towers were removed. The posterolateral gutter was filled with allograft to complete the posterolateral L2-S1 fusion Hemostasis was done and the incision was closed in 2 layers. Steri-Strips were used to approximate the incision. An OpSite with tegaderm was used to cover the incision. All sponge and needle counts were correct. Patient was extubated and transferred in stable is to recovery room. This procedure was done with the aid of physician permit review assistant, who participated in placement of the pedicle screws, interpretation of x-rays, placement of allograft and closure of the incisions. Anesthesia: General Estimated Blood Loss (ml): 300 Duration of Surgery: 6 hrs Complications: None Postoperative Plan: Admit to inpatient for clinical observation
--- NOTE | 2025-01-19 18:51 | PC.NURSE ---
Pt up at change of shift from [facility]SS, +CMS in all extremities. No Resp distress, Dressing on Back and Left Side CDI. F/C Intact, Puiples different than baseline related to Ocular Implants. Able to make needs known, fiscal specialist finn to admit patient.
[2025-01-19] MEDS: oxyCODONE HCl Immed Release 5 MG TABLET 10 MG PO (20:47)
--- NOTE | 2025-01-19 23:28 | PC.NURSE ---
2030: pt assisted to side of bed and educated on importance of early ambulation. pt weak and hard time moving legs. pain meds administered per MAR and will try ambulation again. Pt instructed on use and need of incentive spirometer.
[2025-01-20] VITALS (7 sets, daily range): BP systolic 96–108; BP diastolic 52–59; PULSE 71–84; RESP 17–20; TEMP 36.3–37.1; O2SAT 94–99
[2025-01-20] MEDS: Lactated Ringers 1,000 ML 999 ML IV (00:28)
--- NOTE | 2025-01-20 00:35 | PC.NURSE ---
2350: pt in 12/25. prepared to administer IV dilaudid per MAY. pt BP 94/52 manually. Provider Ruddy notified - bolus LR ordered and dilaudid held. BP to be reevaluated 30 mins after bolus of LR began.
[2025-01-20] MEDS: oxyCODONE HCl Immed Release 5 MG TABLET 10 MG PO ×4 (07:03→18:28)
--- NOTE | 2025-01-20 07:28 | HO.NEURO.PN ---
Neurosurgery Operative Note Date of Service: 01/20/25 Narrative: POD: 1 Procedure: L2-S1 Lumbar fusion David is a pleasant 64-year-old male who underwent L2-S1 lumbar fusion with Dr. Hooper yesterday. He was seen sitting upright in bedside chair this morning on [address] [place] [address] in room 359. No acute overnight events. He reports he has been up out of bed to the bedside chair, but has not attempted to ambulate further than that with his walker. He feels his pain symptoms are much better than pre-operatively. He does still report mild-moderate low back pain with good relief with pain medication. He also reports some hypoesthesia near the left-sided iliopsoas inferior to his lateral incision, and some minor weakness of this area. He is voiding well, tolerating diet. Afebrile, vital signs stable. Patient has about 3/5 strength with left sided iliopsoas compared to right. All lower extremity muscle groups are activated spontaneously without issue. Back and anterolateral dressings have some staining without signs of hematoma. No active sanguineous drainage. Area is dry. Plan: Michelle 64-year-old male who underwent L2-S1 lumbar fusion with Dr. Hooper yesterday. He will remain admitted to [address] [place] [address] for recovery, pain management, and further evaluation. We would like to see him get up out of bed and attempt ambulation with his walker with physical therapy today. We would also like to order a lumbar CT to evaluate for exact placement of surgical instrumentation. His Arauz catheter can be discontinued this morning followed by voiding trial. He has had issues with arauz removal in the past. We will see how he does with PT and likely re-evaluate later this afternoon. Zak Hooper MD,PhD [facility]
--- NOTE | 2025-01-20 08:22 | HO.POSTANES ---
Post Anesthesia Evaluation Post Anesthesia Evaluation Date of Service: 01/20/25 Vital Signs: Vital Signs Temp Pulse Resp BP Pulse Ox O2 Del Method O2 Flow Rate 01/20/25 07:57 97.3 F 71 18 96/56 L 99 Room Air 01/20/25 03:55 98.7 F 78 20 100/52 L 94 Room Air 01/20/25 01:30 108/57 L 01/20/25 01:12 108/59 L 01/19/25 23:55 72 14 94/52 L 97 Nasal Cannula 2 Anesthesia: General Mental Status: Awake Pain Control: Satisfactory Nausea/Vomiting: None Hydration: Adequate Anesthesia-Related Issues: No Anes. Related Issues
--- NOTE | 2025-01-20 13:23 | MHC.CM.PN ---
pt lives with bhtoro own ride home pt may need str if so request is for naren cabrera pt will reeval pt prio to lulu
[2025-01-20] MEDS: oxyCODONE HCl Immed Release 5 MG TABLET PO (20:54)
[2025-01-21 04:00] VITALS: BP 107/50; PULSE 80; RESP 18; TEMP 36.6; O2SAT 95
[2025-01-21] MEDS: oxyCODONE HCl Immed Release 5 MG TABLET PO (07:30)
[2025-01-21 07:44] VITALS: BP 110/59; PULSE 83; RESP 16; TEMP 36.8; O2SAT 92
--- NOTE | 2025-01-21 09:34 | HO.NEURO.PN ---
Neurosurgery Operative Note Date of Service: 01/21/25 Narrative: POD: 2 Procedure: L2-S1 Lumbar fusion David is a pleasant 64-year-old male who underwent L2-S1 lumbar fusion with Dr. Hooper 2 days ago. He was seen sitting upright in bedside chair this morning on [address] [place] [address] in room 359. No acute overnight events. He reports he was able to work with PT yesterday and practice transfers out of chair / bed. He also was able to ambulate with assist but still has some left leg weakness compared to right. Given this, he feels his pain symptoms overall better than pre-operatively. He continues to report some hypoesthesia near the left-sided iliopsoas inferior to his lateral incision. He is voiding well, tolerating diet. No arauz. He does report some acid reflux / GERD symptoms and is requesting medication to help treat this. Afebrile, vital signs stable. Patient has about 3/5 strength with left sided iliopsoas compared to right. Lower extremity strength is otherwise full. Back and anterolateral dressings have some staining without signs of hematoma. No active sanguineous drainage. Area is dry. Plan: Michelle 64-year-old male who underwent L2-S1 lumbar fusion with Dr. Hooper 2 days ago. For the time being he will remain admitted to [address] [place] [address] for recovery, pain management, and further PT evaluation. PT recommended home with services vs. rehab transfer based on subsequent evaluation. We would like to see him try and work with PT again today, and will either be planning to discharge home with services later this afternoon, or keep him admitted until rehab bed can be obtained. His IV fluids can be discontinued. We added on calcium carbonate for GERD symptoms. Zak Hooper MD,PhD [facility]
[2025-01-21 15:25] VITALS: BP 91/52; PULSE 72; RESP 16; TEMP 36.2; O2SAT 97
--- NOTE | 2025-01-21 15:29 | MHC.CM.PN ---
THIS CM FAXED REFERRAL TO [facility] NOT RECEIVING VIA [facility]. FAXED TO [phone]. THIS [facility]ENTER IS PT'S FIRST CHOICE FOR REHAB HE LIVES IN THAT AREA. [facility] WILL REVIEW AND LET CM KNOW. PT WILL BE READY 01/22.
[2025-01-21 19:57] VITALS: BP 107/55; PULSE 76; RESP 18; TEMP 36.7; O2SAT 95
[2025-01-22 04:00] VITALS: BP 101/50; PULSE 70; RESP 18; TEMP 37.1; O2SAT 96
[2025-01-22] MEDS: oxyCODONE HCl Immed Release 5 MG TABLET 10 MG PO ×3 (05:33→12:18)
[2025-01-22 07:46] VITALS: BP 117/59; PULSE 72; RESP 16; TEMP 36.2; O2SAT 95
--- NOTE | 2025-01-22 09:19 | HO.NEUROPN_ITS ---
Neurosurgery Operative Note Date of Service: 01/22/25 Narrative: Postoperative day 3., L2-S1 oblique lumbar interbody fusion Patient reports that he continues to have back pain and weakness in his proximal left leg, but otherwise no radicular symptoms or new weakness. He has been tolerating a diet just fine, no abdominal pain, nausea vomiting etc.. He is passing flatus. He has not had a bowel movement yet. He has been voiding okay. He did have to be straight cath once yesterday, but has been otherwise voiding okay since that time. He has been working with Physical therapy who want to discharge him to rehab to help his improve his mobility to transition home. Afebrile, vital signs stable Physical exam: Patient is awake alert oriented no acute distress, sitting up in a chair, appears comfortable, he has 2/5 left iliopsoas weakness, much of it is related the pain, distal lower extremity strength in the left leg is full, right leg lower extremity strength is full. Abdomen slightly distended, less so than yesterday, he has no rebound tenderness or guarding. He has a left lower quadrant incision which is clean and dry, I removed the outer dressing, Steri- Strips underneath look fine, some mild ecchymosis. The patient's back incision dressing was removed as well, there are Steri-Strips underneath, again there some ecchymosis but no signs of active bleeding. Impression: Postop day 3., L2-S1 oblique lumbar interbody fusion, clinically showing signs of left proximal leg weakness consistent with strain of the left iliopsoas muscle likely secondary to surgical approach. He is otherwise continuing to progress. He is on oxycodone for pain and seems to be okay with that. He appeared comfortable up in the chair this morning. His postoperative CT showed good placement of the hardware. He is tolerating a diet, voiding okay. He is passing flatus but has not had a bowel movement yet. He did not clear PT and we will need to go to rehab to improve his independence in anticipation of going home. Plan will be to discharge him today. Patient is status updated with Dr. Hooper who agrees with the plan.
--- NOTE | 2025-01-22 09:23 | PM.DS ---
DS: Providers Provider Date of Service: 01/19/25 Date of admission: 01/19/25 07:45 Date of discharge: 01/22/25 Primary care physician: Zehra Onofre MD Admitting clinician: Ryan Hooper DS: Diagnosis Discharge Diagnosis (1) Back pain: Status: Acute DS: Summary Hospital Course Hospital Course: This is 64-year-old gentleman with a history of chronic low back pain admitted for elective surgery, L2-S1 oblique lumbar interbody fusion. The patient underwent his procedure without complication, was brought to the recovery room, where he recovered from anesthesia then sent up to the 3rd floor [facility] unit where he began his convalescence. He had a Coffey catheter in place which was removed on postoperative morning 1. His 1st postoperative night was unremarkable other than pain which was expected. He did report some proximal left leg weakness, has a hard time getting out of bed because of the pain and weakness. Postoperative CT was done which was reviewed by Dr. Hooper, showed good placement of the hardware. We expected that the patient would have some iliopsoas weakness secondary to the approach which does involve some retraction near the psoas muscle. This should improve with time. The patient was seen by Physical therapy and evaluated, felt that he was unsafe to go home. We started to look at potential rehab places in the [facility] where he lives. In the meantime he was continued on his oxycodone, Toradol and Tylenol for pain control. He seemed to be comfortable throughout his 2nd and 3rd postoperative day as long as he was getting the medication. He did have to be straight cath once but has been voiding fine ever since. He has been tolerating a diet without nausea and vomiting. He is passing flatus but has not had a bowel movement. He has a mildly distended abdomen, but no rebound tenderness or guarding. At this point the patient will be discharged on postoperative day 3. Out to rehab. He does not need a brace. He has activity as tolerated. He is diet as tolerate it as well. His vital signs have been stable on room air. The patient will follow up with us in 3 weeks. He will be sent to rehab with a prescription for oxycodone, and she would follow up with us in 3 weeks. All pertinent postoperative guidelines and instructions were reviewed with the patient and his . Condition on discharge: Patient is awake alert oriented no acute distress, sitting up in a chair, appears comfortable, he has 2/5 left iliopsoas weakness, much of it is related the pain, distal lower extremity strength in the left leg is full, right leg lower extremity strength is full. Abdomen slightly distended, less so than yesterday, he has no rebound tenderness or guarding. He has a left lower quadrant incision which is clean and dry, I removed the outer dressing, Steri-Strips underneath look fine, some mild ecchymosis. The patient's back incision dressing was removed as well, there are Steri-Strips underneath, again there some ecchymosis but no signs of active bleeding. Time Attestation Discharge Coordination Time (in mins): 5 Quality: Safe Use of Opioids Does Pt have an Active Cancer Diagnosis on the Problem List?: No Quality: Stroke Does the patient have a stroke diagnosis?: No Physical Exam Vital Signs: Vital Signs: Last Vital Signs Temp 97.2 F 01/22/25 07:46 Pulse 72 01/22/25 07:46 Resp 16 01/22/25 07:46 BP 117/59 L 01/22/25 07:46 Pulse Ox 95 01/22/25 07:46 O2 Del Method Room Air 01/22/25 07:46 O2 Flow Rate 2 01/19/25 23:55 BMI result Body Mass Index 34.6 Discharge Plan Discharge Anticipated Discharge Date/Time: 01/22/25 09:31 Patient Disposition: Xfer Inpatient Rehab Fac Discharge Diagnosis: Lumbar Degenerative Disk disease Referrals: Zehra Onofre MD [Primary Care Provider, Medical] - 1 Week Discharge Medications: New methocarbamol 750 mg Tablet 750 mg PO TID PRN (Reason: Muscle Spasm) Qty: 20 0RF docusate sodium 100 mg Capsule 100 mg PO BID Qty: 20 0RF oxycodone 5 mg Tablet 5 mg PO Q4H PRN (Reason: Pain, Moderate(Pain Scale 4-6)) Qty: 30 0RF Rx Instructions: 1-2 tabs po q4 hours prn pain;Partial Fill upon patient request. Continued allopurinol 100 mg tablet 100 mg PO DAILY aspirin 81 mg Tablet,Delayed Release (Dr/Ec) 81 mg PO DAILY amitriptyline 25 mg tablet 50 mg PO DAILY fluocinonide 0.05 % Cream 1 appl TOPICAL BID PRN (Reason: Rash) losartan 100 mg tablet 100 mg PO DAILY atenolol 50 mg tablet 50 mg PO DAILY rosuvastatin 40 mg tablet 40 mg PO DAILY pregabalin 150 mg capsule 150 mg PO TID cholecalciferol (vitamin D3) 25 mcg (1,000 unit) Tablet 25 mcg PO DAILY diclofenac sodium 1 % gel 2 g topical BID PRN (Reason: Pain) Wegovy 1 mg/0.5 mL pen injector 1 mg subcut QWEEK Patient Comments: patient takes every Saturday Discharge Orders: Discharge Order (Routine); Ordered 01/22/25 Ordered By: Tommy Estrella Diet: Advance to usual diet Activity on Discharge: As tolerated Stand Alone Forms: Patient Portal Discharge page Print Language: Citizen Of [place] Activity Restrictions/Additional Instructions: After your spinal surgery we ask you to observe the following restrictions/guidelines: Activity: It is normal to feel some discomfort as you increase your activity, but that will improve with time. We ask you avoid heavy lifting or acitivities that cause pain. As a general rule, 8lbs is a safe limit for lifting right after surgery. Walk as much as you feel comfortable but not to exhaustion. You will feel extra tired the first few days after surgery. Stay well hydrated. It is OK to walk up and down stairs You may return to driving when you are off narcotics (such as vicodin, oxycodone, dilaudid, etc), and you are back to normal functional capacity. If you have any concerns please check with office before driving. Return to work is specific to each patient and each surgery, so please speak with your doctor/PA at first follow up. Please bring paperwork such as FMLA at that time if you need it filled out. Medications: For optimum pain control, it is best to start with a combination of 500 mg of Tylenol every 4 hours with 600 mg of Motrin every 8 hours, and use narcotics as needed in between for breakthrough pain. We will give you a short supply of narcotics after surgery (usually one weeks worth). If you need more please call the office but do not use more than prescribed. You will need to give our office 48 hours notice if you need narcotics refilled and we do not fill narcotics on weekends or evenings. If you are on a narcotic, it is a good idea to take a stool softener such as colace or senna to avoid constipation If you take blood thinner such as aspirin, Plavix, Coumadin, Effient, Eliquis etc for conditions such as Afib, DVT, Pulmonary embolus, coronary disease, stents etc please speak with your surgeon about specific details as to when you can resume these medications. Follow up: Please call the office, , after surgery to arrange a 3 week follow up for wound check. Wound Care: You may remove your dressing on the first day after surgery. ?You may ?leave open to air. Please do not remove the steri strips underneath. they will fall off on their own in one week. IT IS NORMAL FOR THE WOUND TO OOZE OR BE BLOODY FOR A FEW DAYS AFTER SURGERY. ?IF THIS HAPPENS JUST PLACE NEW DRESSING OVER IT TO AVOID STAINING CLOTHES. You may shower on post op day # 1 We ask that you do not let the water soak the wound. If it does get wet, just towel dry lightly. Please do not scrub your incision or place any type of chemical/ointment on the wound. No tub baths, pools or jacuzzis for one month. If you have any leaking or redness from your wound, or fevers, please call office Care Plan Goals: Discharge to rehab Health Concerns: Recover from back surgery Plan of Treatment: Discharge to rehab Assessment: Clinically stable
--- NOTE | 2025-01-22 09:49 | MHC.CM.PN ---
pts notified of dc to naren
[2025-01-22 10:17] VITALS: BP 117/59; PULSE 72; O2SAT 95
[2025-01-22 12:44] VITALS: BP 116/61; PULSE 73; RESP 16; TEMP 36.6; O2SAT 94
== END 2025-01-22 12:58 | DRG 448 ==
LOC: HO.SSSA 15:26 → HO.S3 18:06
PROVIDERS: Neurological Surgery; Nurse Practitioner; Admitting Provider Physician Assistant; PCP Student in an Organized Health Care Education/Training Program; Visit Provider Physician Assistant
PROC: 0SG10A0 Fusion of 2 or more Lumbar Vertebral Joints with Interbody Fusion Device, Anterior Approach, Anterior Column, Open Approach (ICD-10-PCS; principal; 2025-01-19 08:50)
DX: M51.369 Other intervertebral disc degeneration, lumbar region without mention of lumbar back pain or lower extremity pain (principal); M48.061 Spinal stenosis, lumbar region without neurogenic claudication; I25.10 Atherosclerotic heart disease of native coronary artery without angina pectoris; Z95.0 Presence of cardiac pacemaker; Z87.891 Personal history of nicotine dependence; Z79.899 Other long term (current) drug therapy
CPT/HCPCS: 36415; 72131; 80048; 85027; 86850; 86900; 86901; 97162; 97166; 97530; C1713; C1889; J0131; J0665; J0666; J0690; J1100; J1171; J1596; J1885; J2003; J2250; J2371; J2704; J3010; J7120; L8699

== ENCOUNTER 2025-01-19 07:45 | Outpatient (BNV) | payer MEDICARE, MEDICAID, SELFPAY | END 2025-01-20 09:04 | PROVIDERS: Admitting Provider Physician Assistant; PCP Student in an Organized Health Care Education/Training Program; Visit Provider Radiology Diagnostic Radiology | DX: Z98.1 Arthrodesis status (principal) | CPT/HCPCS: 72131 ==

== ENCOUNTER → 2025-01-19 07:45 | Outpatient (BNV) | payer MEDICARE, MEDICAID, SELFPAY | PROVIDERS: Admitting Provider Physician Assistant; PCP Student in an Organized Health Care Education/Training Program; Visit Provider Neurological Surgery | DX: Z48.89 Encounter for other specified surgical aftercare (principal) | CPT/HCPCS: 99024; 99499 ==

== ENCOUNTER 2025-02-08 13:36 | Outpatient (REF) | payer MEDICARE, MEDICAID, SELFPAY ==
--- NOTE | ~2025-02-08 | XR_ITS ---
Examination: CR Xr Lumbar Spine 4v Min Technique: AP, and lateral: Flexion, neutral, and extension view x-rays of the lumbar spine. Comparison: CT performed 01/20/2025 FINDINGS: Generator projects in the left superior gluteal region. Wires extend up to midline at T12-L1. Neurostimulator vertex over T9-T10 at the midline, only visible on the frontal view. Moderate atherosclerotic calcifications are visible in the aorta. Multiple surgical clips are present anterior to inferior L5 There are 5 non-rib bearing lumbar segments. Posterior pedicle screws and rods extending between L2-S1. There are interbody spacers at each level. There is no sign of subsidence or interval displacement of the spacers. Hardware is intact without abnormal lucencies at bone metal interfaces. With flexion and extension, there is no sign of instability. XR/XR lumbar spine 4V min IMPRESSION: Posterior lumbar fusion L2-S1 with interbody spacers at each level through this region. There is no instability during flexion and extension. There are no complicating features associated with the hardware. Electronically signed by: Ervin Woods MD 02/08/2025 05:45 PM EST
== END 2025-02-08 13:37 | disposition home or self-care (01) ==
LOC: HO.HOSX 13:36
PROVIDERS: PCP Student in an Organized Health Care Education/Training Program; Visit Provider Physician Assistant
DX: Z47.89 Encounter for other orthopedic aftercare (principal); Z98.1 Arthrodesis status; Z79.899 Other long term (current) drug therapy
CPT/HCPCS: 72110; 99212

== ENCOUNTER 2025-02-08 13:36 | Outpatient (AMB) | payer MEDICARE, MEDICAID, SELFPAY ==
--- NOTE | 2025-02-08 14:10 | HO.SPINEOV ---
Intake Visit Reasons: 1st post op Intake Note: Mr. Nelson is here today for his 1st post op. Electrophysiology Technician Required: No Allergies No Known Allergies Allergy (Verified 01/19/25 08:04) Assessment & Plan Assessment & Plan (1) S/P lumbar fusion: Code(s): Z98.1 - Arthrodesis status Category: Surgical Plan Procedure: L2-3, L3-4, L4-5 and L5-S1 MAGDALENA Hernandez is a pleasant 64-year-old male who underwent the above-listed procedure with Dr. Hooper a few weeks ago. Unfortunately he had a somewhat complicated postoperative course. After being discharged to rehabilitation facility, he contracted a bad bout of influenza. He ended up being evaluated in the emergency department and being sent back to his facility. After this, he states that essentially he was left to lie in bed for the next couple of weeks. He did not have any PT sessions at rehab per his report. He also has tapered down rather drastically to 5 mg oxycodone 3 times daily for a total of 15 mg per day. Our typical postoperative regimen is oxycodone 5 mg 1-2 tablets every 4 hours for the 1stcouple of weeks after surgery. This is commonly extended out further with large multilevel fusion surgeries. Thankfully, and despite this he reports that the bulk of his preoperative pain has subsided. He no longer has severe back pain, and feels his numbness in his feet has improved. Unfortunately he still has fairly severe hyperesthesia to light touch of his right anterior thigh. No new neurological deficits. The patient ambulates well and rises from a seated position without difficulty. His lateral and posterior incision sites are closed and well healing. I would like to send cornelius for a set of dynamic lumbar spine x-rays today, to ensure there is no issues with the surgical construct given his severe hyperesthesia to light touch over the right anterior thigh. I will follow this up with a CT scan to evaluate for exact placement of the instrumentation. Zak Hooper MD,PhD [facility] Orders: Orders XR lumbar spine 4V min Today Z98.1 - Arthrodesis status CT lumbar spine wo IV con Today Z98.1 - Arthrodesis status Medications: New oxycodone Take 1-2 Tablets orally every 4 hours PRN; Partial Fill upon patient request. 30 tabs 0RF pain Refilled methocarbamol 750 mg PO TID PRN 30 tabs 2RF Muscle Spasm Coding Level of Care Code Global (27676) Diagnoses S/P lumbar fusion Z98.1
--- OUTSIDE RECORDS SUMMARY | 2025-02-08 18:24 | XMS_ITS | Clinical Summary ---
Author Organization [facility] Address [address] [place] [address] Phone Care Team Providers Care Associate Buyer Name Role Phone Zehra Onofre MD Primary Care Provider [phone] Allergies No known active allergies Medications atenolol [...] Diagnosed Date Nonrheumatic aortic valve insufficiency 02/28/20 Coronary artery disease invo lving choct[place] coronary artery of choct[place] heart without angina pectoris 02/28/2024 Hyperlipidemia 02/28/2024 [...] st Contact Info) Description 03/02/2024 Procedure Pass [facility] Cardiac [address] [place] [address] 08/23/2025 2:30 PM EDT Appointment [facility] Cardiac [address] [place] [address] Noé Armas MD, MSc [address] [facility] [place] [address] [email or web address] 08/23/2025 3:30 PM EDT Office Visit [facility] Cardiovascular Medicine [address], 5th Floor, [address] [place] [address] Kelly Mack, AIRPLANE CABIN ATTENDANT [address] [facility] [address] [place] [address] [email or web address] Health Maintenance Due Date Last Done Comments [...] this topic Medical Devices Implanted Type Area Motor Assembly Supervisor Device Identifier Shelf Expiration Date Model / Serial / Lot Right Thr Iol Lens Intraocular Ct Rafaela 602 21.0d - [id number] Implanted:Qty: 1 on 03/27/2022 by Corky Jim MD at [facility] Right: Eye [employer] 12/15/2024 CT RAFAELA 602 21.0D / [id number] / Insurance [facility]IC[facility] PART A & B [facility] & [facility] B [facility] Care Teams Associate Buyer Relationship Specialty Start Date End Date Zehra Onofre MD [address] [place] [address] PCP - General 03/05/24 Additional Source Comments The information contained in this document represents components of the legal health record. It is not the complete legal health record.[facility]
--- OUTSIDE RECORDS SUMMARY | 2025-02-08 18:24 | XMS_ITS ---
Author Organization [facility] [place] [facility] Care Team Providers Care Barrel Dedenting Machine Operator Name Role Phone Joe Whipple Unavailable Unavailable Rosetta Aparicio Unavailable Unavailable Aaron Fuentes Unavailable Unavailable Allergies and adverse reactions Code CodeSystem Substance Reaction Severity StartDate Concern Status [id number] SNOMED CT Pollen Moderate 01/25/2025 active Care Team Name Role Address Phone Organization [facility] Aaron Fuentes PCP [address] [place] [address], [address] (Office): : [facility] 01/22/2025 - 02/05/20[address] Wh[address] [facility] [place], [address] (Office): : [phone] [facility] 01/22/2025 - 02/05/2025 Rosetta Aparicio [address], [place], [address] (Office): : [phone] [facility] 01/22/2025 - 02/05/2025 Encounters Encounter Type Code Code System Description Performer Discharge Disposition Service Delivery Location Date Ambulatory Encounter CPT Code = [id number] Operation on nervous system Griselda Lucas Patient [facility] Address: [address] 01/22 Ambulatory Encounter CPT Code = [id number] Heart failure Griselda Lucas Patient [facility] Address: [address] 01/22 Ambulatory Encounter CPT Code = [id number] Essential hypertension Griselda Lucas Patient [facility] Address: [address] 01/22 Ambulatory Encounter CPT Code = [address] Polyneuropathy Griselda Lucas Patient [facility] Address: [address] 01/22 Ambulatory Encounter CPT Code = [id number] Lumbar spondylosis Griselda Lucas Patient [facility] Address: [address] 01/22 Ambulatory Encounter CPT Code = [id number] Implantation procedure Griselda Lucas Patient [facility] Address: [address] 01/22 Ambulatory Encounter CPT Code = [id number] Hyperlipidemia Griselda Lucas Patient [facility] Address: [address] 01/22 Ambulatory Encounter CPT Code = [id number] Gout Griselda Lucas Patient [facility] Address: [address] 01/22 Ambulatory Encounter CPT Code = [id number] Marfan''s syndrome Griselda Lucas Patient [facility] [place] [place] - [facility] Address: [address], [place], [place], [facility], [facility]. 01/22 Medications Section Medication Name Status Code CodeSystem Dose Route Frequency Admin Type Sig Text Start Date End Date Indication OXYCODONE HCL 5 mg TABLET aborted 75926 21 RXNORM 1 table t Oral as needed PRN Give 1 to 2 table ts (td=5 to 10 mg) by mouth every 4 hours as neede d for pain 01/29 - OXYCODONE HCL 5 mg TABLET aborted 76436 21 RXNORM 2 table t Oral as needed PRN Give 2 table t by mouth every 8 hours as neede d for Pain - Mild (1-);P ain - Sever e (-) 02/03 Pain - Mild (1-10);Pa in - Severe (-12/25) Multiple Vitamins-Mi nerals Tablet active 1 table t Oral one time a day Routin e Give 1 table t by mouth one time a day for vitam in 2024 - vitamin MiraLax Oral Packet 17 GM active 06861 5 RXNORM 1 packe t Oral one time a day Routin e Give 1 packe t by mouth one time a day for Const ipati on 2024 - Constipatio n OXYCODONE HCL 5 mg TABLET active 20662 21 RXNORM 1 table t Oral every 8 hours Routin e Give 1 table t by mouth every 8 hours for Pain AND Give 1 table t by mouth as neede d for Pain - Moder ate (-);P ain - Sever e (-) 2024 - Pain 11438 21 RXNORM 1 table t Oral as needed PRN Give 1 table t by mouth every 8 hours for Pain AND Give 1 table t by mouth as neede d for Pain - Moder ate (4-);P ain - Sever e (-) 2024 - Pain - Moderate (4-09/24);Pa in - Severe (8-12/25) Ibuprofen Oral Tablet 200 MG active 96864 5 RXNORM 2 table t Oral as needed PRN Give 2 table t by mouth every 8 hours as neede d for Pain 2024 - Pain Insurance Providers Problems Problem # Description Date of onset Resolved Date Code CodeSystem Concern Status 1 ESSENTIAL (PRIMARY) HYPERTENSION 01/25/[address] active 2 GOUT, UNSPECIFIED 01/25/[address] active 3 HEART FAILURE, UNSPECIFIED 01/25/[address] active 4 HYPERLIPIDEMIA, UNSPECIFIED 01/25/[address] active 5 MARFAN SYNDROME, UNSPECIFIED 01/25/[address] active 6 POLYNEUROPATHY, UNSPECIFIED 01/25/[address] active 7 PRESENCE OF CARDIAC PACEMAKER 01/25/[address] active 8 SPONDYLOSIS WITHOUT MYELOPATHY OR RADICULOPATHY, LUMBAR REGION 01/25/[address] active 9 ENCOUNTER FOR SURGICAL AFTERCARE FOLLOWING SURGERY ON THE NERVOUS SYSTEM 01/22/[address] active Reason for Referral No Reasons for Referral Entered Social History Social History Observation Description Start Date End Date Code Code System Current Smoking Status Tobacco smoking consumption unknown [id number] SNOMED CT Sex Assigned At Male 1960 [address]-7 [facility] Gender Identity Sexual Orientation
--- OUTSIDE RECORDS SUMMARY | 2025-02-08 18:24 | XMS_ITS | Encounter Summary ---
Author Organization [facility] Address [address] [place] [address] Phone Care Team Providers Care Box Printing Machine Operator Name Role Phone Dunia Hansen MD Primary Care Provider [phone] Zehra Onofre MD Primary Care Provider [phone] Encounter Details Date Type Department Care Team (Late st Contact Info) Description 07/30/2022 Procedure Pass [facility] Cardiac US [address] [place] [address] Social History Tobacco Use Types Packs/Day Years [...] [facility] [place] Card[place] US [address] [place] [address] 08/23/2025 2:30 PM EDT Appointment [facility] Cardiac US [address] [place] [address] Noé Armas MD, MSc [address] [facility] [place] [address] [email or web address] 08/23/2025 3:30 PM EDT Office Visit [facility] Cardiovascular Medicine [address] [facility], 5th Floor, [address] [place] [address] Kelly Mack, MEENU [address] [facility] [address] [place] [address] [email or web address] documented as of this encounter Visit Diagnoses Not on filedocumented in this encounter Care Teams Box Printing Machine Operator Relationship Specialty Start Date End Date Dunia Hansen MD [address] [place] [address] PCP - General 02/21/22 03/04/24 Zehra Onofre MD [address] [address] PCP - General 03/05/24 Dr. Charles Ramsey [facility] Principal Product Manager 03/15/22 03/04/24 documented as of this encounter Additional Source Comments The information contained in this document represents components of the legal health record. It is not the complete legal health record.[facility]
--- OUTSIDE RECORDS SUMMARY | 2025-02-08 18:24 | XMS_ITS | Encounter Summary ---
Author Organization [facility] Address [address] [place] [address] Phone Care Team Providers Care Dry House Wheeler Name Role Phone Dunia Hansen MD Primary Care Provider [phone] Zehra Onofre MD Primary Care Provider [phone] Encounter Details Date Type Department Care Team (Late st Contact Info) Description 03/27/2022 Procedure Pass [facility] [address] [place] [address] Social History Tobacco Use Types Packs/Day Years [...] st Contact Info) Description 03/02/2024 Procedure Pass [facility] Card[facility] US [address] [place] [address] 08/23/2025 2:30 PM EDT Appointment [facility] Cardiac US [address] [place] [address] Noé Armas MD, MSc [address] [place], [place] [address] [place] [address] [email or web address] 08/23/2025 3:30 PM EDT Office Visit [facility] Cardiovascular Medicine [address] [facility], 5th [address], [address] [place] [address] Kelly Mack CNP [address] [facility] [address] [place] [address] [email or web address] documented as of this encounter Visit Diagnoses Not on filedocumented in this encounter Care Teams Dry House Wheeler Relationship Specialty Start Date End Date Dunia Hansen MD [address] [place] [address] PCP - General 02/21/22 03/04/24 Zehra Onofre MD [address] [address] PCP - General 03/05/24 Dr. Charles Ramsey [facility] Crusher Tender 03/15/22 03/04/24 documented as of this encounter Additional Source Comments The information contained in this document represents components of the legal health record. It is not the complete legal health record.[facility]
== END 2025-02-08 14:56 | disposition home or self-care (01) ==
LOC: HO.HNS 13:37
PROVIDERS: PCP Student in an Organized Health Care Education/Training Program; Visit Provider Physician Assistant
DX: Z98.1 Arthrodesis status (principal)
CPT/HCPCS: 99024

== ENCOUNTER → 2025-02-08 15:03 | Outpatient (BNV) | payer MEDICARE, MEDICAID, SELFPAY | PROVIDERS: PCP Student in an Organized Health Care Education/Training Program; Visit Provider Radiology Diagnostic Radiology | DX: M43.27 Fusion of spine, lumbosacral region (principal); Z98.1 Arthrodesis status | CPT/HCPCS: 72110 ==

== ENCOUNTER 2025-03-09 08:48 | Outpatient (REF) | payer MEDICARE, MEDICAID, SELFPAY ==
--- OUTSIDE RECORDS SUMMARY | 2024-09-19 04:00 | XMS_ITS ---
Author Organization [facility] Address [address] [place] [address] Care Team Providers Care Pear Picker Name Role Phone Migration, Provider Unavailable Unavailable REASON FOR VISIT EMR-Jason Encounters Encounter Location Date Provider Diagnosis Migrated_Facility 0 0 09/19/2024 Provider Migration Plan Of Treatment Medication Medication Name Sig Start Date Stop Date Notes tadalafil 20 mg tablet 20 mg TABLET take 1 tablet by oral route every day as needed ORAL 03/20/2021 06/12/2021 *Reorder from [employer] for eRx and Interaction Alerts* Atenolol 50 MG Tablet TAKE ONE TABLET BY MOUTH DAILY Oral 01/31/2021 10/06/2021 pregabalin 100 mg capsule 100 mg CAPSULE take 1 capsule by oral route 3 times every day ORAL 11/22/2020 06/12/2021 *Reorder from [employer] for eRx and Interaction Alerts* Allopurinol 100 MG Tablet take 1 tablet by ORAL route every day Oral 07/04/2020 04/18/2021 amLODIPine Besylate 10 MG Tablet take 1 tablet by oral route every day Oral 09/30/2019 Omeprazole 10 MG Capsule Delayed Release take 1 capsule by oral route every day before a meal Oral 07/04/2020 Symbicort 160-4.5 MCG/ACT Aerosol inhale 2 puff by inhalation route 2 times every day in the morning and evening Inhalation 07/04/2020 ProAir RespiClick 108 (90 Base) MCG/ACT Aerosol Powder Breath Activated inhale 2 puff by inhalation route every 4 - 6 hours as needed Inhalation 07/04/2020 Drizalma Sprinkle 30 mg capsule,delayed release [address] SPR take 2 capsule by oral route every day ORAL 07/04/2020 03/20/2021 *Reorder from [facility] for eRx and Interaction Alerts* Rosuvastatin Calcium 40 MG Tablet take 1 tablet by oral route every day Oral 07/04/2020 10/06/2021 Losartan Potassium 100 MG Tablet take 1 tablet by oral route every day Oral 01/31/2021 10/06/2021 Medrol 4 MG Tablet Therapy Pack take by oral route as directed per package instructions Oral 09/05/2021 09/19/2021 hydroCHLOROthiazide 25 MG Tablet take 1 tablet by oral route every day Oral 07/04/2020 Isosorbide Mononitrate ER 60 MG Tablet Extended Release 24 Hour take 1 tablet by oral route at bedtime Oral 09/09/2019 09/16/2019 Gabapentin 800 MG Tablet take 1 tablet b y oral route 3 times every day Oral 07/04/2020 08/16/2020 Atorvastatin Calcium 40 MG Tablet take 1 tablet by oral route every day Oral 09/30/2019 07/04/2020 Clindamycin HCl 300 MG Capsule take 1 capsule by oral ROUTE EVERY 8 HOURS FOR 7 DAYS Oral 10/14/2019 07/04/2020 Furosemide 20 MG Tablet take 1 tablet by ORAL route every day Oral 12/05/2020 08/04/2021 Progress Notes * David CALVERTDOB:1960 (64 yo M)Acc No.[id number]:09/19/2024 Patient: David OREILYL :1960 A ge:64 Y S ex:Male Address:[facility], [place], [address] * Refills Stop Allopurinol Tablet, 100 MG, Oral, 0, take 1 tablet by ORAL route every day Stop amLODIPine Besylate Tablet, 10 MG, Oral, 0, take 1 tablet by oral route every day Stop Atenolol Tablet, 50 MG, Oral, 0, take 1 tablet by oral route every day Stop Atenolol Tablet, 50 MG, Oral, 90, take 1 tablet by oral route every day Stop Atenolol Tablet, 50 MG, Oral, 90, TAKE ONE TABLET BY MOUTH DAILY Stop Atenolol Tablet, 50 MG, Oral, 90, TAKE ONE TABLET BY MOUTH DAILY Stop Atorvastatin Calcium Tablet, 40 MG, Oral, 0, take 1 tablet by oral route every day Stop Clindamycin HCl Capsule, 300 MG, Oral, 21, take 1 capsule by oral ROUTE EVERY 8 HOURS FOR 7 DAYS Stop Furosemide Tablet, 20 MG, Oral, 0, take 1 tablet by ORAL route every day Stop Furosemide Tablet, 20 MG, Oral, 0, take 1 tablet by ORAL route every day Stop Gabapentin Tablet, 800 MG, Oral, 0, take 1 tablet by oral route 3 times every day Stop hydroCHLOROthiazide Tablet, 25 MG, Oral, 0, take 1 tablet by oral route every day Stop hydroCHLOROthiazide Tablet, 25 MG, Oral, 0, take 1 tablet by oral route every day Stop Isosorbide Mononitrate ER Tablet Extended Release 24 Hour, 60 MG, Oral, 60, take 1 tablet by oral route every day in the morning Stop Isosorbide Mononitrate ER Tablet Extended Release 24 Hour, 60 MG, Oral, 60, take 1 tablet by oral route at bedtime Stop Losartan Potassium Tablet, 100 MG, Oral, 0, take 1 tablet by oral route every day Stop Losartan Potassium Tablet, 100 MG, Oral, 90, take 1 tablet by oral route every day Stop Medrol Tablet Therapy Pack, 4 MG, Oral, 1, take by oral route as directed per package instructions Stop Omeprazole Capsule Delayed Release, 10 MG, Oral, 0, take 1 capsule by oral route every day before a meal Stop Rosuvastatin Calcium Tablet, 40 MG, Oral, 0, take 1 tablet by oral route every day Stop Rosuvastatin Calcium Tablet, 40 MG, Oral, 0, take 1 tablet by oral route every day Stop Rosuvastatin Calcium Tablet, 40 MG, Oral, 90, take 1 tablet by oral route every day Stop Symbicort Aerosol, 160-4.5 MCG/ACT, Inhalation, 0, inhale 2 puff by inhalation route 2 times every day in the morning and evening Stop ProAir RespiClick Aerosol Powder Breath Activated, 108 (90 Base) MCG/ACT, Inhalation, 0, inhale 2 puff by inhalation route every 4 - 6 hours as needed Stop Drizalma Sprinkle 30 mg capsule,delayed release CAP DR SPR, 30 mg, ORAL, 0, take 2 capsule by oral route every day Stop tadalafil 20 mg tablet TABLET, 20 mg, ORAL, 30, take 1 tablet by oral route every day Stop tadalafil 20 mg tablet TABLET, 20 mg, ORAL, 30, take 1 tablet by oral route every day as needed Stop pregabalin 100 mg capsule CAPSULE, 100 mg, ORAL, 0, take 1 capsule by oral route 3 times every day Subjective: * Chief Complaints: * E -Jason * * Date:
--- OUTSIDE RECORDS SUMMARY | 2024-09-20 04:00 | XMS_ITS ---
Author Organization [facility] Address [address] [facility] [place] [address] Care Team Providers Care Inbound Sales Representative Name Role Phone Migration, Provider Unavailable Unavailable Allergies No Known Allergies REASON FOR VISIT EMR-[facility] Medications Medication SIG (Take, Route, Frequency, Duration) Notes Start Date End Date Status Aspirin Adult Low Strength 81 MG Tablet Delayed Release take 1 tablet by oral route every day Oral Active Losartan Potassium 100 MG Tablet TAKE ONE TABLET BY MOUTH DAILY Oral 10/06/2021 Active pregabalin 150 mg capsule 150 mg CAPSULE take 1 capsule by oral route 2 times every day ORAL *Reorder from [facility] for eRx and Interaction Alerts* 06/12/2021 Active Furosemide 20 MG Tablet take 1 tablet by ORAL route every day Oral 08/04/2021 Active Atenolol 50 MG Tablet TAKE ONE TABLET BY MOUTH DAILY Oral 10/06/2021 Active Pantoprazole Sodium 40 MG Tablet Delayed Release take 1 tablet by oral route every day Oral 03/20/2021 Active Rosuvastatin Calcium 40 MG Tablet take 1 tablet by oral route every day Oral 10/06/2021 Active Social History Social History Additional Details Category Social Info Options Details Migrated Social History Migrated Social History Have you used tobacco: R Encounters Encounter Location Date Provider Diagnosis Migrated_Facility 0 0 09/20/2024 Provider Migration Plan Of Treatment No Information Progress Notes * David CALVERT NaldoDOB:1960 (64 yo M)Acc No.[id number]:09/20/2024 Patient: David OREILLY :1960 A ge:64 Y S ex:Male Address:[address], [address], [place] [address] Subjective: * Chief Complaints: * E MR-Jason * Medical History: Med_system:cardiovascular, Disease : Hypertension Med_system:cardiovascular, Disease : Coronary artery disease Disease : neuropathy Disease : marfan syndrome Problems: Angina of effort, Added Date: 04/16/2019, Onset Date: 04/15/2019:Active Med_system:cardiovascular, Disease : Hypercholesterolemia Problems: Palpitations, Added Date: 04/16/2019, Onset Date: 04/15/2019:Active Problems: Marfan's syndrome, unspecified, Added Date: 04/16/2019, Onset Date: 04/15/2019:Active Problems: Erectile dysfunction of organic origin, Added Date: 12/05/2020, Onset Date: 12/05/2020:Active Problems: Shortness of breath, Added Date: 04/16/2019, Onset Date: 04/15/2019:Active * Surgical History: Sx_Procedure : Hip Surgery Sx_Procedure : knee reconstructive Sx_Procedure : pacemaker Sx_Procedure : stent placement * Family History: F ather: stroke. M igrated Family History: : Family history of marfines syndrome,No family history of Cardiovascular disease. M other: marfan syndrome. B rother: marfan syndrome.?Sister: marfan syndrome. S on: marfan syndrome. * Social History: M igrated Social History: M igrated Social History: Have you used tobacco: R. * Medications: T akingLosartan Potassium 100 MG Tablet TAKE ONE TABLET BY MOUTH DAILY Oral Furosemide 20 MG Tablet take 1 tablet by ORAL route every day Oral Rosuvastatin Calcium 40 MG Tablet take 1 tablet by oral route every day Oral pregabalin 150 mg capsule 150 mg CAPSULE take 1 capsule by oral route 2 times every day ORAL , Notes to Pharmacist: *Reorder from [employer] for eRx and Interaction Alerts*Pantoprazole Sodium 40 MG Tablet Delayed Release take 1 tablet by oral route every day Oral Atenolol 50 MG Tablet TAKE ONE TABLET BY MOUTH DAILY Oral Aspirin Adult Low Strength 81 MG Tablet Delayed Release take 1 tablet by oral route every day Oral Taking Losartan Potassium 100 MG Tablet TAKE ONE TABLET BY MOUTH DAILY Oral Taking Furosemide 20 MG Tablet take 1 tablet by ORAL route every day Oral Taking Rosuvastatin Calcium 40 MG Tablet take 1 tablet by oral route every day Oral Taking pregabalin 150 mg capsule 150 mg CAPSULE take 1 capsule by oral route 2 times every day ORAL , Notes to Pharmacist: *Reorder from [facility] for eRx and Interaction Alerts*Taking Pantoprazole Sodium 40 MG Tablet Delayed Release take 1 tablet by oral route every day Oral Taking Atenolol 50 MG Tablet TAKE ONE TABLET BY MOUTH DAILY Oral Taking Aspirin Adult Low Strength 81 MG Tablet Delayed Release take 1 tablet by oral route every day Oral * Allergies: N .K.D.A. * * Date:
--- NOTE | ~2025-03-09 | CT_ITS ---
EXAMINATION: CT LUMBAR SPINE WITHOUT CONTRAST TECHNIQUE: Axial imaging was performed from mid T12 through the lower sacrum coccygeal region without IV contrast. Coronal and sagittal reformatted images were generated from the original axial data set. ALARA: The examination used one or more of the following radiation dose reduction techniques: Automated exposure control, iterative reconstruction, and/or adjustment of mA and/or kV. INDICATION: Z98.1 - Arthrodesis status PRIOR: 01/20/2025 FINDINGS: Moderate atherosclerotic calcifications are present in the abdominal aorta and iliac arteries. There are 5 [id number] lumbar segments. Wires from a spinal stimulator are seen at the cephalad margin of the image. There is stable subtle retrolisthesis at L5-S1. Again seen are postoperative changes with posterior pedicle screws and rods spanning L2-S1 with interbody spacers at each level. L2-3: There is questionable mild subsidence of the interbody spacer into inferior L2. At L5-S1, interbody spacer is secured with an inferior screw extending into S1. There is increasing density in the interbody spaces at minimally L2-3 and more so at L3-4, L4-5, and L5-S1 L2: Again seen is a fracture through the base of an osteophyte in the anterior inferior endplate which bridging bone anteriorly, unchanged. (coronal image 12, axial CT #5 image 45). There are likely similar fractures at L3 and L4. No other changes are evident. CT/CT lumbar spine wo IV con IMPRESSION: Increasing calcification/ossification in the interbody spaces at L2-3, L3-4, L4-5, and L5-S1. Calcification L2-3 is subtle. L2-3: Possible mild subsidence of interbody spacer into inferior L2. Suspected fracture through osteophyte involving anterior inferior endplates of L2, L3, and L4, similar to the prior, with bridging bone anteromedially. Electronically signed by: Ervin Woods MD 03/09/2025 10:04 AM ANDRE
--- OUTSIDE RECORDS SUMMARY | 2025-03-09 09:09 | XMS_ITS | Clinical Summary ---
Author Organization [facility], Address [address] [place] [address] Phone Care Team Providers Care Or Scrub Tech Name Role Phone Unavailable Primary Care Provider Unavailabl e Allergies No known active allergies Active Problems Problem Noted Date Diagnosed Date Back pain 12/02/2024 Degeneration of lumbar intervertebral disc 12/02 Encounters Date Type Department Care Team Description 01/08/2025 10:00 AM EDT Office Visit [facility] [address] [place] [id number] Xu Arreola MD Degeneration of lumbar intervertebral disc (Primary Dx) from Last 3 Months Social History Tobacco [...]
--- OUTSIDE RECORDS SUMMARY | 2025-03-09 09:09 | XMS_ITS | Clinical Summary ---
Author Organization [facility] Address [address] [place] [id number] Care Team Providers Care Drawstring Knotter Name Role Phone Unavailable Primary Care Provider Unavailabl e Social History Tobacco Use Types Packs/Day Years Used Date Smoking Tobacco: Never Assessed Sex and Gender Information Value Date Recorded Sex Assigned at Not on file Legal Sex Male 11:50 PM EST Gender Identity Not on file Sexual Orientation Not on file Plan of Treatment Not on file
--- OUTSIDE RECORDS SUMMARY | 2025-03-09 09:09 | XMS_ITS | Patient Health Record ---
Author Organization [facility] Address [address] [facility] [address] [place] [address] Care Team Providers Care Small Animal Veterinarian Name Role Phone Migration, Provider Unavailable Unavailable [...] 2 times every day ORAL *Reorder from Alexandre de [place] for eRx and Interaction Alerts* 06/12/2021 Active [...]
== END 2025-03-09 08:49 ==
LOC: HO.CT 08:48
PROVIDERS: PCP Student in an Organized Health Care Education/Training Program; Visit Provider Physician Assistant
DX: Z98.1 Arthrodesis status (principal)
CPT/HCPCS: 72131

== ENCOUNTER → 2025-03-09 08:50 | Outpatient (BNV) | payer MEDICARE, MEDICAID, SELFPAY | PROVIDERS: PCP Student in an Organized Health Care Education/Training Program; Visit Provider Radiology Diagnostic Radiology | DX: Z98.1 Arthrodesis status (principal) | CPT/HCPCS: 72131 ==